=== PATIENT | female | born 1985 | race African-American/Black ===

== ENCOUNTER 2017-01-25 20:19 | Inpatient (IN) | payer SELFPAY ==
[~2017-01-25] VITALS: Ht 162.6 cm; Wt 71.7 kg
[2017-01-25] MEDS ORDERED: LORazepam 1 MG TABLET PO ONE (20:45)
[2017-01-25 20:48] LABS: BASO % 0 % (0-3); EOS % 0 % (0-3); HEMATOCRIT 25.6 % (36.0-47.0); HEMOGLOBIN 7.5 g/dL (12.0-15.5); LYMPH # 0.7 x10^3/uL (1.0-4.8); LYMPH % 6 % (24-48); MEAN CORPUSCULAR HEMOGLOBIN 18 pg (25-35); MEAN CORPUSCULAR HGB CONC 29 g/dL (31-37); MEAN CORPUSCULAR VOLUME 61 fL (79-100); MONO % 5 % (0-9); NEUT % 88 % (31-73); PLATELET COUNT 245 x10^3/uL (140-400); RED CELL DISTRIBUTION WIDTH 18.8 % (11.5-14.5); WHITE BLOOD COUNT 11.4 x10^3/uL (4.0-11.0)
[2017-01-25] MEDS ORDERED: LORazepam 1 MG TABLET ONE (20:48)
[2017-01-25 20:57] LABS: CREATININE 0.8 mg/dL (0.6-1.0); GFR 84.2; POTASSIUM 3.4 mmol/L (3.5-5.1)
[2017-01-25 20:59] LABS: ALBUMIN 3.8 g/dL (3.4-5.0); DIRECT BILIRUBIN 0.1 mg/dL (0.0-0.2); TOTAL BILIRUBIN 0.4 mg/dL (0.2-1.0); TOTAL PROTEIN 8.3 g/dL (6.4-8.2)
[2017-01-25 21:11] LABS: HYPOCHROMIA MARKED; PLT ESTIMATE ADEQUATE (ADEQUATE); POLYCHROMASIA SLIGHT
[2017-01-25 21:12] LABS: ANISOCYTOSIS SLIGHT; MICROCYTOSIS MARKED
[2017-01-25] MEDS ORDERED: HYDROmorphone 2 MG/ML VIAL IV ONE (21:30)
[2017-01-25] MEDS ORDERED: IOHEXOL 300 MG/ML 75 ML VIAL IV ONE (21:45)
[2017-01-25] MEDS ORDERED: CONTRAST GIVEN MC PRN (21:45)
--- NOTE | 2017-01-25 22:15 | RAD ---
PQRS Compliance Statement: One or more of the following individualized dose reduction techniques were utilized for this examination: 1. Automated exposure control 2. Adjustment of the mA and/or kV according to patient size 3. Use of iterative reconstruction technique Chest CT with IV contrast: 01/25/2017 9:27 PM Indication: 31 years old Female. Severe midsternal chest pain. Comparison studies: None. Technique: Multiple contiguous axial images of the chest were obtained from the thoracic inlet through the upper abdomen following the administration of 75 mL nonionic contrast. Two-D coronal and sagittal reconstructions were performed. Maximum intensity projection images are provided. FINDINGS: CHEST WALL AND LOWER NECK: Normal. MEDIASTINUM AND KENDALL: No mediastinal or hilar lymphadenopathy or soft tissue mass. HEART AND PERICARDIUM: Heart is normal in size. There is no pericardial effusion. VESSELS: The thoracic aorta is normal in course and caliber. Contrast bolus is suboptimal for evaluation of aortic dissection. No definite dissection flap is identified. No intramural hematoma. LUNGS: No acute area of infiltrative or consolidative change. LARGE AIRWAYS: Central airways are patent. PLEURAL: No pleural effusion or thickening. No pneumothorax. UPPER ABDOMEN: Unremarkable. BONES: No acute fracture, blastic or osteolytic lesion. IMPRESSION: Suboptimal contrast bolus for evaluation of aortic dissection, however no definite dissection flap is identified. No intramural hematoma. No aneurysm is noted. Electronically signed by: Salma Robbins MD (01/25/2017 10:12 PM) [place] [id number]
--- NOTE | 2017-01-25 22:16 | PHYS DOC ---
Past Medical History Past Medical History: Anemia, Asthma, Other Additional Past Medical Histor: MIGRAINE Past Surgical History: Tubal ligation Alcohol Use: None Drug Use: None Adult General Chief Complaint Chief Complaint: CHEST PAIN HPI HPI 31-year-old female presenting to the emergency department today with chest pain for about 2 hours. The pain is a sharp shooting pain. She has a history of migraines and reports also having intermittent headaches throughout the week. She denies unilateral leg swelling hemoptysis or personal or family history of blood clotting disorders. She denies a history of high blood pressure, diabetes , or high cholesterol. She denies being . She has a history of anemia which in the past has required transfusions. Review of systems is negative for fevers chills cough abdominal pain vision changes difficulty speaking. All other review of systems is negative unless otherwise noted in history of present illness. ED course: 31-year-old female presenting to the emergency department today with chest pain. Patient was hyperventilating initially in the emergency department and very anxious. I offered her an oral medication to help calm her down. Ativan administered which helped her symptomatology. Patient also received hydromorphone for chest pain. EKG obtained which shows sinus tachycardia. ST segments congruent. Not suggestive of ACS. Patient's sinus tachycardia likely related to her writhing around in the examination room hyperventilating and extremely anxious. After patient called down her heart rate came down. Chest x- ray obtained and reviewed by myself.Chest x-ray reviewed by myself shows no obvious infiltrate or pneumothorax present. No obvious acute cardiopulmonary process present. Blood work obtained shows negative troponin. Mild leukocytosis present which is nonspecific. Patient's hemoglobin low which is according the patient's reports a chronic condition. She denies on her stools. CT angiography of the chest obtained. On reexamination the patient is feeling better. HEART score 0. CT angiogram was protocol for aortic dissection because the way the patient describes the pain as a severe pain clinically seemed more to suggest dissection then pulmonary embolism. The patient does not have unilateral leg swelling hemoptysis or any significant risk factors for pulmonary embolism. CT angiogram negative. When I went to tell the patient that she was going to be discharged she reported suddenly not being able to move any of her arms or legs or be able to feel any of her arms or legs. This is not consistent with organic pathology. After nursing staff encouraged her to move, she was able to move. Given the patient's weakness in all extremities, she was admitted to our hospital for further evaluation workup and care. She does have a chronic anemia which can cause weakness but does not cause acute weakness. Patient was able walk in to the emergency department without any difficulty. She was writhing around the bed initially during her initial examination. I called our neurologist Dr. Wilkins, discussed the case. The patient be admitted with neurology consultation. Review of Systems Review of Systems SEE ABOVE. Current Medications Current Medications Current Medications Medications (Trade) Dose Ordered Sig/Rashaun Start Time Stop Time Status Last Admin Dose Admin Hydromorphone HCl (Dilaudid) 0.5 mg 1X ONCE 01/25/17 21:30 01/25/17 21:31 DC 01/25/17 21:31 0.5 MG Info (Do NOT chart on this entry -- for MONITORING) 1 each PRN DAILY PRN 01/25/17 21:45 01/27/17 21:44 Iohexol (Omnipaque 300 Mg/ml) 75 ml 1X ONCE 01/25/17 21:45 01/25/17 21:46 DC 01/25/17 21:46 75 ML Lorazepam (Ativan) 1 mg STK-MED ONCE 01/25/17 20:48 01/25/17 20:49 DC Morphine Sulfate 2 mg PRN Q2HR PRN 01/25/17 23:45 01/26/17 23:44 Ondansetron HCl (Zofran) 4 mg PRN Q8HRS PRN 01/25/17 23:45 01/26/17 23:44 Allergies Allergies Allergies Coded Allergies Type Severity Reaction Last Updated Verified ciprofloxacin Allergy Intermediate 01/25/17 Yes sulfamethoxazole Allergy Intermediate 01/25/17 Yes trimethoprim Allergy Intermediate 01/25/17 Yes Physical Exam Physical Exam SEE ABOVE Constitutional: Well developed, well nourished, anxious appearing, nontoxic. HENT: Normocephalic, atraumatic, bilateral external ears normal, oropharynx moist, no oral exudates, nose normal. [] Eyes: PERRLA, EOMI, conjunctiva normal, no discharge. [] Neck: Normal range of motion, no tenderness, supple, no stridor. [] Cardiovascular:Heart rate regular rhythm, no murmur [] Lungs & Thorax: Bilateral breath sounds clear to auscultation [] Abdomen: Bowel sounds normal, soft, no tenderness, no masses, no pulsatile masses. [] Skin: Warm, dry, no erythema, no rash. [] Back: No tenderness, no CVA tenderness. [] Extremities: No tenderness, no cyanosis, no clubbing, ROM intact, no edema. [] Neurologic: Alert and oriented X 3, normal motor function, normal sensory function, no focal deficits noted. [] Psychologic: Affect normal, judgement normal, mood normal. [] Current Patient Data Vital Signs Vital Signs Date Time Temp Pulse Resp B/P (MAP) Pulse Ox O2 Delivery O2 Flow Rate FiO2 01/25/17 21:31 48 01/25/17 20:30 98.7 118 144/80 (101) 100 Room Air 98.7 Lab Values Laboratory Tests Test 01/25/17 20:35 01/25/17 21:07 White Blood Count 11.4 x10^3/uL (4.0-11.0) H Red Blood Count 4.20 x10^6/uL (3.50-5.40) Hemoglobin 7.5 g/dL (12.0-15.5) L Hematocrit 25.6 % (36.0-47.0) L Mean Corpuscular Volume 61 fL (79-100) L Mean Corpuscular Hemoglobin 18 pg (25-35) L Mean Corpuscular Hemoglobin Concent 29 g/dL (31-37) L Red Cell Distribution Width 18.8 % (11.5-14.5) H Platelet Count 245 x10^3/uL (140-400) Neutrophils (%) (Auto) 88 % (31-73) H Lymphocytes (%) (Auto) 6 % (24-48) L Monocytes (%) (Auto) 5 % (0-9) Eosinophils (%) (Auto) 0 % (0-3) Basophils (%) (Auto) 0 % (0-3) Neutrophils # (Auto) 10.1 x10^3uL (1.8-7.7) H Lymphocytes # (Auto) 0.7 x10^3/uL (1.0-4.8) L Monocytes # (Auto) 0.6 x10^3/uL (0.0-1.1) Eosinophils # (Auto) 0.0 x10^3/uL (0.0-0.7) Basophils # (Auto) 0.0 x10^3/uL (0.0-0.2) Platelet Estimate Adequate (ADEQUATE) Polychromasia Slight Hypochromasia Marked Anisocytosis Slight Microcytosis Marked Sodium Level 138 mmol/L (136-145) Potassium Level 3.4 mmol/L (3.5-5.1) L Chloride Level 101 mmol/L (98-107) Carbon Dioxide Level 21 mmol/L (21-32) Anion Gap 16 (6-14) H Blood Urea Nitrogen 9 mg/dL (7-20) Creatinine 0.8 mg/dL (0.6-1.0) Estimated GFR (Cockcroft-Gault) 84.2 Glucose Level 136 mg/dL (70-99) H Calcium Level 9.0 mg/dL (8.5-10.1) Total Bilirubin 0.4 mg/dL (0.2-1.0) Direct Bilirubin 0.1 mg/dL (0.0-0.2) Aspartate Amino Transferase (AST) 19 U/L (15-37) Alanine Aminotransferase (ALT) 21 U/L (14-59) Alkaline Phosphatase 60 U/L (46-116) Troponin I Quantitative < 0.017 ng/mL (0.000-0.055) GY-Mdu-L-Type Natriuretic Peptide 71 pg/mL (0-124) Total Protein 8.3 g/dL (6.4-8.2) H Albumin 3.8 g/dL (3.4-5.0) Lipase 166 U/L (73-393) POC Urine HCG, Qualitative Hcg negative (Negative) Laboratory Tests 01/25/17 20:35 Laboratory Tests 01/25/17 20:35 EKG EKG [] Radiology/Procedures Radiology/Procedures [] Course & Med Decision Making Course & Med Decision Making Pertinent Labs and Imaging studies reviewed. (See chart for details) [] Dragon Disclaimer Dragon Disclaimer This electronic medical record was generated, in whole or in part, using a voice recognition dictation system. Departure Departure Impression: Primary Impression: Chest pain Additional Impression: Weakness Disposition: 09 ADMITTED INPATIENT Admitting Physician: Enrike Cedeno Condition: STABLE Referrals: NO PCP (PCP) Patient Instructions: Chest Pain (Nonspecific) Additional Instructions: Thank you for allowing us to participate in your care today. Followup with your primary care physician in 3 days if your symptoms do not improve. Call your Primary Doctor tomorrow and inform them of your visit today. If you do not have a primary care provider you can ask for a list of our primary care providers. Return to the emergency department you have any new or concerning findings. This should be evaluated by the primary care physician and any necessary consulting services for continued management within a few days after discharge. Return to emergency room if you have any new or concerning symptoms including but not limited to fever, chills, nausea, vomiting, intractable pain, any new rashes, chest pain, shortness of air, uncontrolled bleeding, difficulty breathing, and/or vision loss. Problem Qualifiers JACK BOWEN MD Jan 25, 2017 22:16
[2017-01-25] MEDS ORDERED: ONDANSETRON PF 4 MG/2 ML VIAL. IV PRN (23:45)
[2017-01-26] VITALS (7 sets, daily range): BP systolic 99–128; BP diastolic 46–69
[2017-01-26] MEDS ORDERED: FERR-36 PO (01:56)
[2017-01-26] MEDS ORDERED: PROAIR HFA8.5 GM INH (01:56)
[2017-01-26] MEDS: MORPHINE SULFATE 2 MG/ML DISP.SYRIN. IV PRN ×2 (02:23→07:52)
[2017-01-26] MEDS ORDERED: diphenhydrAMINE 50 MG/ML VIAL IVP PRN (02:45)
[2017-01-26] MEDS ORDERED: HYDROmorphone 2 MG/ML VIAL IV PRN (02:45)
[2017-01-26 06:43] LABS: BASO % 0 % (0-3); EOS % 0 % (0-3); HEMATOCRIT 23.5 % (36.0-47.0); LYMPH # 0.9 x10^3/uL (1.0-4.8); LYMPH % 8 % (24-48); MEAN CORPUSCULAR HEMOGLOBIN 18 pg (25-35); MEAN CORPUSCULAR HGB CONC 30 g/dL (31-37); MEAN CORPUSCULAR VOLUME 60 fL (79-100); MONO % 11 % (0-9); NEUT % 80 % (31-73); PLATELET COUNT 232 x10^3/uL (140-400); RED BLOOD COUNT 3.92 x10^6/uL (3.50-5.40); RED CELL DISTRIBUTION WIDTH 18.8 % (11.5-14.5); WHITE BLOOD COUNT 11.2 x10^3/uL (4.0-11.0)
[2017-01-26 06:44] LABS: CALCIUM 8.4 mg/dL (8.5-10.1); CREATININE 0.8 mg/dL (0.6-1.0); GFR 101.9
[2017-01-26] MEDS ORDERED: IV NORMAL SALINE 1000ML BAG 1,000 ML IV ONE (09:45)
[2017-01-26] MEDS: POTASSIUM CHLORIDE 10MEQ 100 ML IV SCH ×4 (10:16→13:00)
--- NOTE | 2017-01-26 10:44 | RAD ---
Portable chest, 01/25/2017: History: Chest pain The heart size and pulmonary vascularity are normal. No pulmonary infiltrates are seen. There is no evidence of pleural fluid. There is a mild left convexity thoracic scoliosis. IMPRESSION: No acute cardiopulmonary abnormality is detected.
--- NOTE | 2017-01-26 12:23 | EKG ---
[facility] [address] [place] [address] Test Date: 2017-01-25 Test Time: 20:29:43 Pat Name: MYA CAMARILLO Department: Room: [facility] Gender: F Complaints Coordinator: : 1985 Requested By: JACK BOWEN Order Number: [id number] Reading MD: Michael Mcnair Measurements Intervals [place] Rate: 135 P: 35 [place]: 98 QRS: 42 QRSD: 90 T: 23 QT: 338 QTc: 512 Interpretive Statements SINUS TACHYCARDIA NONSPECIFIC ST-T WAVE CHANGES. RI6.01 Unconfirmed report No previous ECG available for comparison Electronically Signed On 02-13-2017 17:11:01 CDT by Michael Mcnair
--- NOTE | 2017-01-26 13:13 | PDOC2 ---
NEUROLOGY CONSULT Date of Admission Date of Admission Full Report Dictated DATE: 01/26/17 TIME: 13:11 Current Medications Current Medications Current Medications Lorazepam (Ativan) 1 mg 1X ONCE PO Last administered on 01/25/17 20:50; Start 01/25/17 at 20:45; Stop 01/25/17 at 20:48; Status DC Lorazepam (Ativan) 1 mg STK-MED ONCE .ROUTE ; Start 01/25/17 at 20:48; Stop 01/25/17 at 20:49; Status DC Hydromorphone HCl (Dilaudid) 0.5 mg 1X ONCE IV Last administered on 01/25/17 21:31; Start 01/25/17 at 21:30; Stop 01/25/17 at 21:31; Status DC Iohexol (Omnipaque 300 Mg/ml) 75 ml 1X ONCE IV Last administered on 01/25/17 21:46; Start 01/25/17 at 21:45; Stop 01/25/17 at 21:46; Status DC Info (Do NOT chart on this entry -- for MONITORING) 1 each PRN DAILY PRN MC SEE COMMENTS; Start 01/25/17 at 21:45; Stop 01/27/17 at 21:44 Ondansetron HCl (Zofran) 4 mg PRN Q8HRS PRN IV NAUSEA/VOMITING Last administered on 01/26/17 02:23; Start 01/25/17 at 23:45; Stop 01/26/17 at 12:46 ; Status DC Morphine Sulfate 2 mg PRN Q2HR PRN IV PAIN Last administered on 01/26/17 07:52 ; Start 01/25/17 at 23:45; Stop 01/26/17 at 09:38; Status DC Diphenhydramine HCl (Benadryl) 25 mg PRN Q6HRS PRN IVP ITCHING Last administered on 01/26/17 03:00; Start 01/26/17 at 02:45; Stop 01/26/17 at 09:38 ; Status DC Hydromorphone HCl (Dilaudid) 1 mg PRN Q4HRS PRN IV PAIN Last administered on 05:07; Start 01/26/17 at 02:45; Stop 01/26/17 at 09:38; Status DC Sodium Chloride 1,000 ml @ 100 mls/hr 1X ONCE IV Last administered on 10:15; Start 01/26/17 at 09:45; Stop 01/26/17 at 19:44 Potassium Chloride 100 ml @ 100 mls/hr Q1H IV Last administered on 01/26/17 12:16; Start 01/26/17 at 10:00; Stop 01/26/17 at 13:59 Ibuprofen (Motrin) 400 mg PRN Q6HRS PRN PO INFLAMMATION; Start 01/26/17 at 09: 45 Diphenhydramine HCl (Benadryl) 25 mg PRN Q6HRS PRN PO ITCHING; Start 01/26/17 at 09:45 Citalopram Hydrobromide (CeleXA) 20 mg DAILY PO ; Start 01/26/17 at 13:00 Active Scripts Active Reported Iron (Ferrous Sulfate) 325 Mg Tablet 325 Mg PO QID Proair Hfa Inhaler (Albuterol Sulfate) 8.5 Gm Hfa.aer.ad 1 Puff INH PRN Q6HRS PRN Allergies Allergies: Coded Allergies: ciprofloxacin (Verified Allergy, Intermediate, 01/25/17) sulfamethoxazole (Verified Allergy, Intermediate, 01/25/17) trimethoprim (Verified Allergy, Intermediate, 01/25/17) Vitals VITALS Vital Signs Date Time Temp Pulse Resp B/P (MAP) Pulse Ox O2 Delivery O2 Flow Rate FiO2 01/26/17 11:35 98.4 92 20 100/50 (67) 100 98.4 01/26/17 08:00 Room Air Labs Labs Laboratory Tests Test 01/25/17 20:35 01/25/17 21:07 01/26/17 06:00 White Blood Count 11.4 x10^3/uL (4.0-11.0) 11.2 x10^3/uL (4.0-11.0) Red Blood Count 4.20 x10^6/uL (3.50-5.40) 3.92 x10^6/uL (3.50-5.40) Hemoglobin 7.5 g/dL (12.0-15.5) 7.0 g/dL (12.0-15.5) Hematocrit 25.6 % (36.0-47.0) 23.5 % (36.0-47.0) Mean Corpuscular Volume 61 fL (79-100) 60 fL (79-100) Mean Corpuscular Hemoglobin 18 pg (25-35) 18 pg (25-35) Mean Corpuscular Hemoglobin Concent 29 g/dL (31-37) 30 g/dL (31-37) Red Cell Distribution Width 18.8 % (11.5-14.5) 18.8 % (11.5-14.5) Platelet Count 245 x10^3/uL (140-400) 232 x10^3/uL (140-400) Neutrophils (%) (Auto) 88 % (31-73) 80 % (31-73) Lymphocytes (%) (Auto) 6 % (24-48) 8 % (24-48) Monocytes (%) (Auto) 5 % (0-9) 11 % (0-9) Eosinophils (%) (Auto) 0 % (0-3) 0 % (0-3) Basophils (%) (Auto) 0 % (0-3) 0 % (0-3) Neutrophils # (Auto) 10.1 x10^3uL (1.8-7.7) 9.0 x10^3uL (1.8-7.7) Lymphocytes # (Auto) 0.7 x10^3/uL (1.0-4.8) 0.9 x10^3/uL (1.0-4.8) Monocytes # (Auto) 0.6 x10^3/uL (0.0-1.1) 1.2 x10^3/uL (0.0-1.1) Eosinophils # (Auto) 0.0 x10^3/uL (0.0-0.7) 0.0 x10^3/uL (0.0-0.7) Basophils # (Auto) 0.0 x10^3/uL (0.0-0.2) 0.0 x10^3/uL (0.0-0.2) Platelet Estimate Adequate (ADEQUATE) Polychromasia Slight Hypochromasia Marked Anisocytosis Slight Microcytosis Marked Sodium Level 138 mmol/L (136-145) 137 mmol/L (136-145) Potassium Level 3.4 mmol/L (3.5-5.1) 3.0 mmol/L (3.5-5.1) Chloride Level 101 mmol/L (98-107) 103 mmol/L (98-107) Carbon Dioxide Level 21 mmol/L (21-32) 20 mmol/L (21-32) Anion Gap 16 (6-14) 14 (6-14) Blood Urea Nitrogen 9 mg/dL (7-20) 8 mg/dL (7-20) Creatinine 0.8 mg/dL (0.6-1.0) 0.8 mg/dL (0.6-1.0) Estimated GFR (Cockcroft-Gault) 84.2 101.9 Glucose Level 136 mg/dL (70-99) 101 mg/dL (70-99) Calcium Level 9.0 mg/dL (8.5-10.1) 8.4 mg/dL (8.5-10.1) Total Bilirubin 0.4 mg/dL (0.2-1.0) Direct Bilirubin 0.1 mg/dL (0.0-0.2) Aspartate Amino Transf (AST/SGOT) 19 U/L (15-37) Alanine Aminotransferase (ALT/SGPT) 21 U/L (14-59) Alkaline Phosphatase 60 U/L (46-116) Troponin I Quantitative < 0.017 ng/mL (0.000-0.055) XU-Tsl-C-Type Natriuretic Peptide 71 pg/mL (0-124) Total Protein 8.3 g/dL (6.4-8.2) Albumin 3.8 g/dL (3.4-5.0) Lipase 166 U/L (73-393) Bedside Urine HCG, Qualitative Hcg negative (Negative) Laboratory Tests Test 01/25/17 20:35 01/25/17 21:07 01/26/17 06:00 White Blood Count 11.4 x10^3/uL (4.0-11.0) 11.2 x10^3/uL (4.0-11.0) Red Blood Count 4.20 x10^6/uL (3.50-5.40) 3.92 x10^6/uL (3.50-5.40) Hemoglobin 7.5 g/dL (12.0-15.5) 7.0 g/dL (12.0-15.5) Hematocrit 25.6 % (36.0-47.0) 23.5 % (36.0-47.0) Mean Corpuscular Volume 61 fL (79-100) 60 fL (79-100) Mean Corpuscular Hemoglobin 18 pg (25-35) 18 pg (25-35) Mean Corpuscular Hemoglobin Concent 29 g/dL (31-37) 30 g/dL (31-37) Red Cell Distribution Width 18.8 % (11.5-14.5) 18.8 % (11.5-14.5) Platelet Count 245 x10^3/uL (140-400) 232 x10^3/uL (140-400) Neutrophils (%) (Auto) 88 % (31-73) 80 % (31-73) Lymphocytes (%) (Auto) 6 % (24-48) 8 % (24-48) Monocytes (%) (Auto) 5 % (0-9) 11 % (0-9) Eosinophils (%) (Auto) 0 % (0-3) 0 % (0-3) Basophils (%) (Auto) 0 % (0-3) 0 % (0-3) Neutrophils # (Auto) 10.1 x10^3uL (1.8-7.7) 9.0 x10^3uL (1.8-7.7) Lymphocytes # (Auto) 0.7 x10^3/uL (1.0-4.8) 0.9 x10^3/uL (1.0-4.8) Monocytes # (Auto) 0.6 x10^3/uL (0.0-1.1) 1.2 x10^3/uL (0.0-1.1) Eosinophils # (Auto) 0.0 x10^3/uL (0.0-0.7) 0.0 x10^3/uL (0.0-0.7) Basophils # (Auto) 0.0 x10^3/uL (0.0-0.2) 0.0 x10^3/uL (0.0-0.2) Platelet Estimate Adequate (ADEQUATE) Polychromasia Slight Hypochromasia Marked Anisocytosis Slight Microcytosis Marked Sodium Level 138 mmol/L (136-145) 137 mmol/L (136-145) Potassium Level 3.4 mmol/L (3.5-5.1) 3.0 mmol/L (3.5-5.1) Chloride Level 101 mmol/L (98-107) 103 mmol/L (98-107) Carbon Dioxide Level 21 mmol/L (21-32) 20 mmol/L (21-32) Anion Gap 16 (6-14) 14 (6-14) Blood Urea Nitrogen 9 mg/dL (7-20) 8 mg/dL (7-20) Creatinine 0.8 mg/dL (0.6-1.0) 0.8 mg/dL (0.6-1.0) Estimated GFR (Cockcroft-Gault) 84.2 101.9 Glucose Level 136 mg/dL (70-99) 101 mg/dL (70-99) Calcium Level 9.0 mg/dL (8.5-10.1) 8.4 mg/dL (8.5-10.1) Total Bilirubin 0.4 mg/dL (0.2-1.0) Direct Bilirubin 0.1 mg/dL (0.0-0.2) Aspartate Amino Transf (AST/SGOT) 19 U/L (15-37) Alanine Aminotransferase (ALT/SGPT) 21 U/L (14-59) Alkaline Phosphatase 60 U/L (46-116) Troponin I Quantitative < 0.017 ng/mL (0.000-0.055) FX-Rol-C-Type Natriuretic Peptide 71 pg/mL (0-124) Total Protein 8.3 g/dL (6.4-8.2) Albumin 3.8 g/dL (3.4-5.0) Lipase 166 U/L (73-393) Bedside Urine HCG, Qualitative Hcg negative (Negative) Assessment/Plan Assessment/Plan Patient is a 31-year-old woman who recently relocated from [place] to live in this region to be with her mother. He has been under a great deal of stress. She began to have chest pain and generalized weakness while at her mother's restaurant. In the emergency room the chest pain was felt not to be cardiac. She could not be dismissed she would not move any muscles. She was found to have anemia with initial hemoglobin at 7.5 and a repeat at 7 this morning. She is known to have iron deficiency and previously did require a transfusion about 5 years ago. She is also previously had an episode of paralysis also associated with anemia. Her potassium is low but I do not feel this represents hypokalemic periodic paralysis as she does have normal reflex. I feel this is likely a conversion reaction given her neurologic examination of normal tone and normal reflex. She has normal superficial abdominal reflexes as well which would suggest sensation is actually working. This is not necessarily malingering and is likely conversion meaning she is not doing it on purpose. She may require a transfusion which might help her feel better. I will order a thyroid test to make sure that is not contributing to her flat affect. She may be helped by physical and occupational therapy. She may be dismissed when she is moving adequately. HELEN VILLAREAL MD Jan 26, 2017 13:13
[2017-01-26] MEDS: CITALOPRAM 20 MG TABLET. PO SCH (13:26)
[2017-01-26 14:01] LABS: FREE T4 0.95 ng/dL (0.76-1.46)
--- NOTE | 2017-01-26 16:47 | CONS ---
DATE OF CONSULTATION: 01/26/2017 DATE OF SERVICE: 01/26/2017 REFERRING PHYSICIAN: Dr. Jc Moreau. REASON FOR CONSULTATION: Chest pain and total body paralysis. HISTORY OF PRESENT ILLNESS: The patient is a pleasant 31-year-old woman who recently relocated from [place] to this region to live with her mother. Her mother reports that she has always worked ever since she was young and she has been under stress because she has to find a job. 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 She has strains because she has 5 children, but not all five live with her. She has different fathers for some of these children and some of the children live with their fathers out of state. She presented to the Emergency Room because she was developing a sharp chest pain. She also was developing numbness and weakness. By the time they decided to go from the restaurant to the Emergency Room, she required help to get to the car. In the Emergency Room, the chest pain was investigated and was not found to be cardiac in etiology. She then stated she could not be dismissed because she could not move. She has no difficulty with breathing or talking and moving her eyes, but she could not move her arms or legs. This has improved slightly in that she can move her fingers a tiny bit. She has complete paralysis throughout from her neck on down. There has been no trauma to the head or neck. She has a severe headache, which she usually does experience on a daily basis. She has never been on a headache preventative. She has used [id number] analgesics for the headache. PAST MEDICAL HISTORY: 1. She reports that she had a similar spell 5 years ago in [place] when she was anemic. She was totally paralyzed and she was hospitalized for 3-4 days and made improvement, but it took 3 weeks to gain back all of her strength. 2. Asthma. 3. Migraine headache with chronic daily headaches. 4. Bilateral tubal ligation and tubal . ALLERGIES: CIPROFLOXACIN, SULFA AND TRIMETHOPRIM. FAMILY HISTORY: Several family members have iron deficient anemia. SOCIAL HISTORY: She is single. She has 5 children, but only two presently live with her. The 5 children come from at least 3 different fathers. She does not smoke tobacco or drink excessive alcohol. She has relocated from [place] to live with her mother. REVIEW OF SYSTEMS: She had a severe holocranial headache. There has been no change of vision or hearing. She has been able to eat and swallow. She has had no shortness of breath. She does have sharp chest pain. There has been lower abdominal pain. She has not had fever or rash. Does not have gastrointestinal or genitourinary concern. Does not have a psychiatric concern. Does not complain of easy bruising, bleeding or swelling. She does have a history of anemia and required transfusions previously. MEDICATIONS PRIOR TO ADMISSION: Albuterol metered dose inhaler as needed and iron sulfate, although I am not certain she was actually taking it. PHYSICAL EXAMINATION: VITAL SIGNS: The blood pressure was 100/50, pulse 92, respirations 20, temperature 98.4 degrees Fahrenheit. Oximetry was 100% on room air. Her weight was 158 pounds, height 64 inches and a calculated body mass index of 27.1. GENERAL: She was alert, awake and cooperative. Overall, her affect was quite flat. Her speech was fluent and clear. She had a good fund of recent and remote knowledge. Attention and concentration was intact. She appeared well groomed and well nourished. She was fully oriented. NEUROLOGIC: Examination of the cranial nerves revealed visual hodge were full to confrontation. Extraocular movements were intact. The eyes were conjugate. Pursuit movements were smooth and saccadic eye movements were without dysmetria. Pupils were 3 mm and reacted. Funduscopic exam did not reveal papilledema, exudate or hemorrhage. 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 Facial sensation was intact bilaterally. The muscles of mastication and facial expression were powerful symmetrically. Hearing was intact to finger rub. The palate arches symmetrically and the tongue was midline with full range of motion. Sternocleidomastoid and trapezius were powerful. Muscle bulk was symmetric throughout. Tone was normal, was not spastic or rigid. She would twitch her fingers, but had no movement of any other parts of her arms or legs. Reflexes were intact 2/4 at the bicep, tricep, brachioradialis, knee, and ankle. The toes were downgoing bilaterally. Superficial reflexes were present in the abdomen as well. Coordination testing was not possible due to the global weakness. Sensory examination was not intact to any modality below the neck. Gait was not testable. Auscultation of the carotid arteries did not reveal a bruit. Heart rhythm was regular without a murmur. Peripheral pulses were symmetric in the wrists and feet. There was no edema or cyanosis. The neck was quite supple without any rigidity. Range of motion was normal. LABORATORY DATA: CBC revealed an elevated white count of 11.2. Hemoglobin was 7 and hematocrit 23.5. Platelet count was normal. Electrolytes revealed sodium to be normal at 137. Potassium on admission was 3.4, but this morning was down to 3. She is receiving potassium replacement. CO2 was low at 20 and glucose 101. Calcium was low at 8.4. Troponin was not elevated. BNP was not elevated. Lipase was not elevated. Urinalysis revealed a negative hCG. RADIOLOGIC IMAGING: She underwent a chest x-ray, which was negative. She also had a CTA of the thorax which did not reveal aneurysm. IMPRESSION: The patient is a pleasant 31-year-old woman who developed chest pain and then total body numbness and weakness. As I look into this, if she were to have a hypokalemic periodic paralysis, she would also have an absent reflex. The muscle would be in a constant depolarized state and there could be no reflex. So, that her reflexes are normal, suggests this is not a possible entity for her. Although she is anemic, it is unlikely the anemia correlates. The anemia could certainly make her feel perhaps a little weak or short of breath, but not generally paralyzed. A spinal cord injury could give total paralysis and numbness, but I would see some pathologic changes and there is absolutely no problem moving her head or neck. I find it extremely unlikely there is any type of spinal cord injury. I feel this is a conversion reaction. She is certainly under a great deal of stress. RECOMMENDATIONS: I had a long discussion with various differentials. The potassium is being replaced, but I do not think this will make any difference. She may require transfusion, which might help her feel a little more alert, but I do not think this will make any difference with respect to the strength or coordination or sensation. I do not feel it is an organic process. Typically, even in situations where it is a conversion reaction, therapies can be very helpful in improving function. Hopefully, she will start to improve in the next few days. I will initiate citalopram 20 mg to help as both a headache preventative and help with overall anxiety and mood. We discussed potential adverse effects as well as indications of this medicine. Her mother was present at bedside during the entire interview and evaluation. I appreciate being involved in her care. HELEN VILLAREAL MD DR: CHRIS/laurie JOB#: [id number] / [id number] ana Serrano, ____ PILI BUTLER MD, CHUNMEI MD
[2017-01-26] MEDS: diphenhydrAMINE HCL 25 MG CAPSULE PO PRN (20:42)
[2017-01-26] MEDS: LORazepam 0.5 MG TABLET PO PRN (20:42)
[2017-01-26] MEDS: IBUPROFEN 400 MG TABLET. PO PRN (20:42)
[2017-01-27] VITALS (10 sets, daily range): BP systolic 100–125; BP diastolic 53–83
[2017-01-27] MEDS: IBUPROFEN 400 MG TABLET. PO PRN ×3 (05:58→22:44)
[2017-01-27] MEDS: ASA/APAP/CAFFEINE 250/250/65MG TABLET. PO PRN ×2 (06:46→18:07)
[2017-01-27] MEDS: CITALOPRAM 20 MG TABLET. PO SCH (07:59)
[2017-01-27] MEDS: LORazepam 0.5 MG TABLET PO PRN (09:33)
[2017-01-27 11:14] LABS: BARBITURATES POS (NEG); BENZODIAZEPINES NEG (NEG); CANNABINOIDS POS (NEG); COCAINE NEG (NEG); METHADONE NEG (NEG); OPIATES POS (NEG); PHENCYCLIDINE NEG (NEG)
--- NOTE | 2017-01-27 12:44 | PDOC ---
PROGRESS NOTES Chief Complaint Chief Complaint Chest pain paraplegia ASSESSMENT AND PLAN: 1. 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 started on celexa and ativan for now. encouraged to work with OT/PT 2. Anemia: severe microcytosis. has script for iron qid with hx transfusion. obtain iron studies. suspect 2/2 menorrhagia. transfuse PRBC x1 today 3. Hypokalemia: replete orally History of Present Illness History of Present Illness worried that she may have MS. d/w her at length etiology of her sx Vitals Vitals Vital Signs Date Time Temp Pulse Resp B/P (MAP) Pulse Ox O2 Delivery O2 Flow Rate FiO2 01/27/17 11:00 97.7 94 18 115/72 (86) 95 Nasal Cannula 2.0 97.7 Physical Exam General: Alert, Oriented X3, No acute distress Heart: Regular rate Lungs: Clear Abdomen: Normal bowel sounds, No tenderness Extremities: No clubbing, No edema Skin: No rashes Labs LABS Laboratory Tests Test 01/26/17 13:10 01/27/17 10:24 Thyroid Stimulating Hormone (TSH) 0.851 uIU/mL (0.358-3.74) Free Thyroxine 0.95 ng/dL (0.76-1.46) Urine Opiates Screen Pos (NEG) Urine Methadone Screen Neg (NEG) Urine Barbiturates Pos (NEG) Urine Phencyclidine Screen Neg (NEG) Urine Amphetamine/Methamphetamine Neg (NEG) Urine Benzodiazepines Screen Neg (NEG) Urine Cocaine Screen Neg (NEG) Urine Cannabinoids Screen Pos (NEG) Urine Ethyl Alcohol Neg (NEG) DANTE BLACKWOOD MD Jan 27, 2017 12:44
[2017-01-27] MEDS: LORazepam 0.5 MG TABLET PO SCH ×2 (12:57→18:07)
[2017-01-27] MEDS ORDERED: ONDANSETRON ODT 4 MG TAB.RAPDIS. PO PRN (15:00)
[2017-01-27] MEDS ORDERED: POTASSIUM CHLORIDE 20 MEQ TABLET.ER. PO ONE (15:00)
[2017-01-27] MEDS: ONDANSETRON ODT 4 MG TAB.RAPDIS. PO PRN (15:03)
[2017-01-27 15:23] LABS: % SAT IRON 2 % (15-34); IRON,SERUM 6 ug/dL (50-170)
--- NOTE | 2017-01-27 15:35 | PDOC ---
PROGRESS NOTES Assessment Assessment IMPRESSION: Paralysis, LE. Generalized weakness. Anemia. Chest pain. Mild hypokalemia. Panic attack. Cannabinoids positive. Opiate positive. Conversion disorder? No urinary or bowel dysfunction noted. RECOMMENDATIONS/PLAN: L-spine MRI w/wo contrast. Patient declined LP for CSF exam. Lab: see orders. Consulted Hematology for anemia. OT/PT. PAST MEDICAL HISTORY: 1. She reports that she had a similar spell 5 years ago in [place] when she was anemic. She was totally paralyzed and she was hospitalized for 3-4 days and made improvement, but it took 3 weeks to gain back all of her strength. 2. Asthma. 3. Migraine headache with chronic daily headaches. PAST SURGICAL HISTORY: Bilateral tubal ligation and tubal . ALLERGIES: CIPROFLOXACIN, SULFA AND TRIMETHOPRIM. FAMILY HISTORY: Several family members have iron deficient anemia. SOCIAL HISTORY: She is single. She has 5 children, but only two presently live with her. The 5 children come from at least 3 different fathers. She does not smoke tobacco or drink excessive alcohol. She has relocated from [place] to live with her mother. MEDICATIONS: Refer to [facility] REVIEW OF SYSTEMS: Constitutional: No malnutrition, weight loss, cachexia. Head: No traumatic brain or head injury. Skin: No edema, or rash. Ear: No infection. Eyes: No vision loss, or diplopia. Nose: No bleeding or purulent discharges. Hearing: No hearing decrease. Neck: No injury. Breast: No history of cancer, masses, or discharges. Cardiac: No NM, arrhythmia Pulmonary: No pneumonia. GI: No GI Ulcer, GI bleeding Urinary/genital: UTI. Endocrine: No cousin face, craniofacial dysmorphism, polydactyly. Skeletomuscular: No muscular atrophy, deformity. Neurological: see HP. Psychiatric: drug use/abuse. Otherwise, not [id number] review of systems. PHYSICAL EXAMINATION: General appearance in no acute distress. HEENT: Normocephalic and nontraumatic. Eyes, nose, ears, and throat are unremarkable. Neck is supple. No lymphadenopathy. No bruits are heard over the carotid artery. No Crepitus. Cardiovascular: S1, S2, regular rate and rhythm. Pulmonary: Clear to auscultation bilaterally. Abdomen: Bowel sounds are positive. Abdomen is soft, nontender, and nondistended. Extremities: No rash, lesions, or edema. No restriction of range of motion NEUROLOGICAL EXAMINATION: Alert. Oriented to time, place and person. PERRL. EOMI. CN: no focal findings. Muscle tone: within normal. Muscle strength: 5 UE, but not move LE. DTR: 2+ all over. Plantar reflex: Flexor response bilaterally Gait: stating not able to walk. Sensory exam: She stated decreased to light touch, pain, and vibration sense in LE. No cerebellar signs elicited. F-T-N test fine Objective Objective Vital Signs Date Time Temp Pulse Resp B/P (MAP) Pulse Ox O2 Delivery O2 Flow Rate FiO2 01/27/17 15:19 102.9 111 18 119/67 (84) 100 Room Air 102.9 01/27/17 11:00 2.0 Intake and Output 01/28/17 07:00 Output Total 100 ml Balance -100 ml Output Urine Total 100 ml Vitals Signs Vitals VS - Last 72 Hours, by Label Date Time Temp Pulse Resp B/P (MAP) Pulse Ox O2 Delivery O2 Flow Rate FiO2 01/27/17 15:19 102.9 111 18 119/67 (84) 100 Room Air 102.9 01/27/17 11:00 97.7 94 18 115/72 (86) 95 Nasal Cannula 2.0 97.7 01/27/17 08:00 Room Air 2.0 01/27/17 07:00 100.0 105 18 108/67 (81) 98 Nasal Cannula 2.0 100.0 01/27/17 03:00 98.3 96 17 100/60 (73) 99 Room Air 98.3 01/26/17 23:00 98.8 97 18 104/58 (73) 95 Room Air 98.8 01/26/17 20:10 Room Air 01/26/17 19:00 101.7 116 17 124/69 (87) 99 Room Air 101.7 01/26/17 14:57 141 128/68 (88) 100 Nasal Cannula 2.0 01/26/17 14:49 98.2 90 18 99/52 (68) 100 98.2 01/26/17 11:35 98.4 92 20 100/50 (67) 100 98.4 01/26/17 08:00 Room Air 01/26/17 07:52 16 98 Room Air Laboratory Laboratory Laboratory Tests Test 01/27/17 10:24 01/27/17 12:45 Urine Opiates Screen Pos (NEG) Urine Methadone Screen Neg (NEG) Urine Barbiturates Pos (NEG) Urine Phencyclidine Screen Neg (NEG) Urine Amphetamine/Methamphetamine Neg (NEG) Urine Benzodiazepines Screen Neg (NEG) Urine Cocaine Screen Neg (NEG) Urine Cannabinoids Screen Pos (NEG) Urine Ethyl Alcohol Neg (NEG) Creatine Kinase 53 U/L (26-192) Medication Medications Current Medications Acetaminophen/ Aspirin/Caffeine (Excedrin Migraine) 1 tab PRN Q6HRS PRN PO MIGRAINE HEADACHE Last administered on 01/27/17 06:46; Start 01/27/17 at 06:30 Lorazepam (Ativan) 0.5 mg PRN Q6HRS PRN IV ANXIETY / AGITATION; Start 01/26/17 at 16:30 Lorazepam (Ativan) 0.5 mg PRN Q6HRS PRN PO ANXIETY / AGITATION Last administered on 01/27/17 09:33; Start 01/26/17 at 16:30; Stop 01/27/17 at 12:46 ; Status DC Lorazepam (Ativan) 0.5 mg Q6HRS PO Last administered on 01/27/17 12:57; Start 01/27/17 at 13:00 Ondansetron HCl (Zofran Odt) 4 mg PRN Q6HRS PRN PO NAUSEA/VOMITING Last administered on 01/27/17 15:03; Start 01/27/17 at 15:00 Ondansetron HCl (Zofran Odt) 8 mg PRN Q6HRS PRN PO NAUSEA/VOMITING; Start 01/27 at 15:00 Potassium Chloride (Klor-Con) 40 meq 1X ONCE PO ; Start 01/27/17 at 15:00; Stop 01/27/17 at 15:01; Status DC Comment Review of Relevant I have reviewed the following items ralph (where applicable) has been applied. PILI BUTLER MD Jan 27, 2017 15:35
--- NOTE | 2017-01-27 16:33 | HP ---
ADMIT DATE: 01/27/2017 CHIEF COMPLAINT: Chest pain, leg weakness. HISTORY OF PRESENT ILLNESS: This is a 31-year-old woman without significant past medical history who presented to the Emergency Room with chest pain lasting about 2 hours. She described pain as shooting, sharp and taken her breath away. Associated with headaches, which actually have been going on for almost the entire week. She relates that she also had leg weakness and sometimes her extremities just do not work. She recently moved back from [place] about 2 weeks ago to be closer to her family. She denies any fevers, chills, abdominal pain, vision changes or other neurological symptoms. In the Emergency Room, a CTA of the chest was obtained, which was negative. When she was informed of negative findings on CTA and impending discharge, she complained of suddenly losing the facilities of her legs and was therefore admitted for further workup. PAST MEDICAL HISTORY: Anemia. SOCIAL HISTORY: Denies any toxic habits. FAMILY HISTORY: Negative for neurological disorders. ALLERGIES: CIPROFLOXACIN, BACTRIM. MEDICATIONS: MAR reconciled with home medications. REVIEW OF SYSTEMS: The patient relates that chest pain is off and on. A bit better with pain medications received in the Emergency Room. She is currently unable to lift her arms or legs. Describes them as numb as well. PHYSICAL EXAMINATION: VITAL SIGNS: From today show a blood pressure of 100/50, heart rate at 92, respiratory rate at 20. She is afebrile. GENERAL: This is a 31-year-old well-nourished, woman, currently hyperventilating in bed, family surrounding. HEENT: Shows no scleral icterus. NECK: Supple. LUNGS: Fairly clear with superficial breath taking. HEART: Slightly tachycardic. ABDOMEN: Has positive bowel sounds, soft, nontender. EXTREMITIES: Show no edema. She is not responding to commands at this time. LABORATORY DATA: CBC with a WBC of 11.4, hemoglobin 7.5, MCV of 61, platelets of 245. Chemistries with a BUN and creatinine of 8 and 0.8, potassium at 3.0, calcium at 8.4. CK negative. LFTs last night negative. IMAGING STUDIES: CTA negative for pulmonary embolism or dissection. ASSESSMENT AND PLAN: The patient is a 31-year-old woman with neurological symptoms that are incongruent with any neurological disorder. We will await Dr. Smart's input. Suspect this is psychosomatic rather than organic. We will give Ativan for hyperventilation and anxiety symptoms in the meantime. The patient is significantly anemic with microcytosis suspicious for iron deficiency. She apparently has had a history of previous transfusions. We will obtain iron studies to elucidate. Transfuse for hemoglobin of less than 7. Hypokalemia was noted this morning probably after rehydration. We will replete orally. DANTE BLACKWOOD MD DR: ED/nts JOB#: [id number] / [id number] MORRIS
[2017-01-27 16:35] LABS: INR 1.4 (0.8-1.1); PROTHROMBIN TIME PATIENT 15.9 SEC (11.7-14.0)
[2017-01-27] MEDS ORDERED: IRON SUCROSE COMPLEX 500 MG in IV NORMAL SALINE 250ML 250 ML IV ONE (18:00)
[2017-01-27 21:39] LABS: CREATINE KINASE 59 U/L (26-192)
[2017-01-27 21:43] LABS: CKMB MASS < 0.5 ng/mL (0.0-3.6)
[2017-01-27] MEDS: diphenhydrAMINE HCL 25 MG CAPSULE PO PRN (22:44)
[2017-01-28] VITALS (7 sets, daily range): BP systolic 104–121; BP diastolic 56–76
[2017-01-28] MEDS: LORazepam 0.5 MG TABLET PO SCH ×5 (00:07→23:58)
--- NOTE | 2017-01-28 04:26 | CONS ---
DATE OF CONSULTATION: 01/27/2017 REQUESTING PHYSICIAN: Dr. Jc Cedeno. REASON FOR CONSULTATION: Iron deficiency anemia. HISTORY OF PRESENT ILLNESS: The patient is a 31-year-old female who reports having had a history of chronic anemia at least since 2011. She recently relocated from [place]. She reports having had blood transfusions almost once a year. She reports that the etiology of anemia is heavy menstrual cycles. She is also considering a hysterectomy. She reports that she has 5 children and she has had tubal ligation. She denies nosebleeds or gum bleeding. No hematemesis, melena, hematochezia, no hemoptysis or hematuria. No loss of weight or loss of appetite. She presented to the Emergency Room on 01/25/2017 with chest pain. She also had associated headaches. She had weakness in her legs and generalized weakness. No visual changes or seizures. No fevers or chills. She underwent CT angiogram of the chest on 01/25/2017 that did not reveal any pulmonary embolism. Neurology was consulted. There is no evidence of any spinal cord injury per Neurology. Neurology felt that this could be a conversion reaction. Neurology recommended citalopram 20 mg to help with the headache and overall anxiety and mood. Her hemoglobin at the time of admission on 01/25/2017 was 7.5 and then it dropped to 7.0 on 01/26/2017. MCV was 60 with a platelet count of 232. I was asked to see the patient for further evaluation of anemia. PAST MEDICAL HISTORY: Anemia. SOCIAL HISTORY: No smoking or alcohol abuse. FAMILY HISTORY: Negative for any primary hematologic disorders. There is history of anemia in the family. REVIEW OF SYSTEMS: A 12-point review of systems was performed. Pertinent positives are mentioned in the history of present illness. Rest of the system review is negative. PHYSICAL EXAMINATION: GENERAL APPEARANCE: The patient is a 31-year-old female who is in no acute cardiorespiratory distress. VITAL SIGNS: Blood pressure 119/67, temperature 102.9. HEENT: Head atraumatic, normocephalic. Eyes: No icterus. NECK: Supple. CHEST: Bilaterally symmetrical. HEART: S1, S2 normal. ABDOMEN: Soft, nontender. CENTRAL NERVOUS SYSTEM: She is alert, awake and oriented x 3. LYMPHATICS: No lymphadenopathy. SKIN: No rashes. PSYCHOLOGIC: Mood and affect are appropriate. MUSCULOSKELETAL: No joint effusions. LABORATORY DATA: From 01/26/2017, WBC 11.2, hemoglobin 7, MCV 60, platelet count 232. Peripheral blood smear reveals evidence of polychromasia and anisocytosis and microcytosis. Creatinine is 0.8, calcium 8.4. Iron 6, TIBC 397, iron saturation 2, ferritin is 15. TSH 0.851. Total bilirubin 0.4, direct bilirubin 0.1, AST 19, ALT 21, alkaline phosphatase 60. IMPRESSION AND PLAN: 1. Iron deficiency anemia due to chronic blood loss. Etiology is thought to be heavy menstrual cycles. I have advised Gynecology consultation. The patient is very symptomatic and she wants to proceed with blood transfusion today. I have recommended IV iron infusion. I will order Venofer 500 mg IV x 1. I have advised her to follow up with me in about 2-3 weeks to reevaluate her hemoglobin and proceed with more iron infusions as needed. I discussed in detail with the patient and her mother and all her questions were answered. 2. Leukocytosis, mild. WBC is 11.2. She also has fever. There is no evidence of bands. I will continue to monitor. 3. Fever. Management per her primary physician. 4. I will also order B12, folic acid level, and reticulocyte count. I discussed with RN. OCTAVIO HORTON MD DR: NENO/laurie JOB#: [id number] / [id number] MORRIS
[2017-01-28 04:51] LABS: BASO # 0.1 x10^3/uL (0.0-0.2); BASO % 0 % (0-3); EOS % 1 % (0-3); HEMATOCRIT 25.4 % (36.0-47.0); HEMOGLOBIN 7.8 g/dL (12.0-15.5); LYMPH # 0.3 x10^3/uL (1.0-4.8); LYMPH % 3 % (24-48); MEAN CORPUSCULAR HEMOGLOBIN 19 pg (25-35); MEAN CORPUSCULAR HGB CONC 31 g/dL (31-37); MEAN CORPUSCULAR VOLUME 63 fL (79-100); MONO % 5 % (0-9); NEUT % 91 % (31-73); PLATELET COUNT 206 x10^3/uL (140-400); RED BLOOD COUNT 4.02 x10^6/uL (3.50-5.40); RED CELL DISTRIBUTION WIDTH 20.7 % (11.5-14.5); WHITE BLOOD COUNT 11.9 x10^3/uL (4.0-11.0)
--- NOTE | 2017-01-28 05:43 | RAD ---
INDICATION: fever
sent old film from 01.25.17 COMPARISON: 01/25/2017 FINDINGS: Single view of chest obtained. Hypoexpanded examination with prominent interstitial markings again seen. Cardiac silhouette is enlarged although a portion of this could be secondary to portable technique. Haziness at right lung base medially. IMPRESSION: Haziness at right lung base medially. Could be secondary to overlap of structures but a focus of atelectasis or infiltrate is not excluded given the presence of this finding. Cardiac silhouette is enlarged. This appears more prominent than prior but a portion of this could be technical in nature. If more accurate evaluation is desired a formal PA and lateral chest radiograph could be obtained to see if these findings persist. Electronically signed by: Kit Mckay MD (01/28/2017 5:39 AM) [id number]
[2017-01-28 05:55] LABS: CALCIUM 8.6 mg/dL (8.5-10.1); CREATININE 0.7 mg/dL (0.6-1.0); GFR 118.9; MAGNESIUM 1.9 mg/dL (1.8-2.4); POTASSIUM 3.3 mmol/L (3.5-5.1)
[2017-01-28] MEDS: IBUPROFEN 400 MG TABLET. PO PRN (06:39)
[2017-01-28] MEDS: CITALOPRAM 20 MG TABLET. PO SCH (08:10)
--- NOTE | 2017-01-28 09:07 | EKG ---
[facility] [address] [place] [address] Test Date: 2017-01-28 Test Time: 08:42:03 Pat Name: MYA CAMARILLO Department: Room: 8 Gender: F Internal Affairs Investigator: CLIVE : [id number] Requested By: ALEXUS EDMONDS Order Number: [id number] Reading MD: Jane Caruso Measurements Intervals [place] Rate: 116 P: 55 MD: 116 QRS: 51 QRSD: 88 T: 13 QT: 320 QTc: 451 Interpretive Statements SINUS TACHYCARDIA OTHERWISE NORMAL EKG Electronically Signed On 01-28-2017 20:07:23 CDT by Jane Caruso
[2017-01-28] MEDS ORDERED: GADOBUTROL 7.5 MMOL/7.5 ML VIAL IV ONE (10:15)
[2017-01-28 10:23] LABS: PLT ESTIMATE ADEQUATE (ADEQUATE)
[2017-01-28 10:24] LABS: HYPOCHROMIA PRESENT; POIKILOCYTOSIS PRESENT
[2017-01-28 10:25] LABS: ANISOCYTOSIS MOD; MICROCYTOSIS MARKED; OVALOCYTES PRESENT; SCHISTOCYTES OCC; TEAR DROP CELLS PRESENT
--- NOTE | 2017-01-28 10:49 | RAD ---
MRI Lumbar Spine without and with contrast History: Bilateral leg weakness Technique: Multiplanar, multi sequential pre and postcontrast MR imaging was performed of the lumbar spine. Contrast: 7.5 cc Gadavist Comparison: None Findings: Lumbar vertebral body stature and AP alignment are preserved. Intervertebral disc spaces are maintained. There is no significant marrow edema. Conus terminates normally at the inferior aspect L1. There is no nodular enhancement of the conus or cauda equina, no appreciable enhancement of the descending nerve roots. There is no significant focal posterior disc abnormality of the lumbar spine. There is no significant lumbar spinal stenosis or neural foramina compromise at any level. There is a 1.1 cm Tarlov cyst at S2-3. Impression: 1. Other than small Tarlov cyst of the sacrum, no significant abnormality is identified. Electronically signed by: Anastacio Stuart MD (01/28/2017 10:46 AM) [id number]
[2017-01-28] MEDS: ASA/APAP/CAFFEINE 250/250/65MG TABLET. PO PRN (11:26)
--- NOTE | 2017-01-28 11:51 | PDOC ---
PROGRESS NOTES Subjective Subjective HPI- Iron deficiency anemia due to chronic blood loss. Etiology is thought to be heavy menstrual cycles. ROS-has CP Objective Objective Vital Signs Date Time Temp Pulse Resp B/P (MAP) Pulse Ox O2 Delivery O2 Flow Rate FiO2 01/28/17 08:00 Room Air 01/28/17 06:08 99.4 151 24 115/74 (88) 99 99.4 01/27/17 11:00 2.0 Physical Exam Heart: Normal S1, Normal S2 General: Alert, Oriented X3 Lungs: Clear to auscultation Neuro: Normal speech Psych/Mental Status: Mental status NL Assessment Assessment Problems Medical Problems: (1) Chest pain Status: Acute (2) Weakness Status: Acute IMPRESSION AND PLAN: 1. Iron deficiency anemia due to chronic blood loss. Etiology is thought to be heavy menstrual cycles. I have advised Gynecology consultation. The patient is very symptomatic and she wants to proceed with blood transfusion today. I have recommended IV iron infusion. I will order Venofer 500 mg IV x 1. I have advised her to follow up with me in about 2-3 weeks to reevaluate her hemoglobin and proceed with more iron infusions as needed. I discussed in detail with the patient and her mother and all her questions were answered. s/p 1 PRBC and venofer 01/27/17 Hb 7.8 on 01/28/17. 2. Leukocytosis, mild. WBC is 11.2. She also has fever. There is no evidence of bands. I will continue to monitor. 3. Fever. Management per her primary physician. 4. B12 is 343 on 01/27/17 - start B12 1000 mcg PO daily. Comment Review of Relevant I have reviewed the following items ralph (where applicable) has been applied. Labs Laboratory Tests Test 01/26/17 13:10 01/27/17 10:24 01/27/17 12:45 01/27/17 14:55 Thyroid Stimulating Hormone (TSH) 0.851 uIU/mL (0.358-3.74) Free Thyroxine 0.95 ng/dL (0.76-1.46) Urine Opiates Screen Pos (NEG) Urine Methadone Screen Neg (NEG) Urine Barbiturates Pos (NEG) Urine Phencyclidine Screen Neg (NEG) Urine Amphetamine/Methamphetamine Neg (NEG) Urine Benzodiazepines Screen Neg (NEG) Urine Cocaine Screen Neg (NEG) Urine Cannabinoids Screen Pos (NEG) Urine Ethyl Alcohol Neg (NEG) Creatine Kinase 53 U/L (26-192) Vitamin B12 Level 343 pg/mL (247-911) Serum Folate 12.86 ng/ml (3.2-20.0) Iron Level 6 ug/dL (50-170) Total Iron Binding Capacity 397 ug/dL (250-450) Iron Saturation 2 % (15-34) Ferritin 15 ng/mL (8-252) Test 01/27/17 16:00 01/27/17 20:30 01/27/17 20:45 01/28/17 04:35 Reticulocyte Count (auto) 1.3 % (0.5-2.5) Prothrombin Time 15.9 SEC (11.7-14.0) Prothromb Time International Ratio 1.4 (0.8-1.1) Glucose (Fingerstick) 109 mg/dL (70-99) Creatine Kinase 59 U/L (26-192) Creatine Kinase MB (Mass) < 0.5 ng/mL (0.0-3.6) Creatine Kinase MB Relative Index 0.8 % (0-4) Troponin I Quantitative < 0.017 ng/mL (0.000-0.055) White Blood Count 11.9 x10^3/uL (4.0-11.0) Red Blood Count 4.02 x10^6/uL (3.50-5.40) Hemoglobin 7.8 g/dL (12.0-15.5) Hematocrit 25.4 % (36.0-47.0) Mean Corpuscular Volume 63 fL (79-100) Mean Corpuscular Hemoglobin 19 pg (25-35) Mean Corpuscular Hemoglobin Concent 31 g/dL (31-37) Red Cell Distribution Width 20.7 % (11.5-14.5) Platelet Count 206 x10^3/uL (140-400) Neutrophils (%) (Auto) 91 % (31-73) Lymphocytes (%) (Auto) 3 % (24-48) Monocytes (%) (Auto) 5 % (0-9) Eosinophils (%) (Auto) 1 % (0-3) Basophils (%) (Auto) 0 % (0-3) Neutrophils # (Auto) 10.9 x10^3uL (1.8-7.7) Lymphocytes # (Auto) 0.3 x10^3/uL (1.0-4.8) Monocytes # (Auto) 0.6 x10^3/uL (0.0-1.1) Eosinophils # (Auto) 0.1 x10^3/uL (0.0-0.7) Basophils # (Auto) 0.1 x10^3/uL (0.0-0.2) Segmented Neutrophils % 78 % (35-66) Band Neutrophils % 17 % (0-9) Lymphocytes % 1 % (24-48) Monocytes % 4 % (0-10) Platelet Estimate Adequate (ADEQUATE) Hypochromasia Present Poikilocytosis Present Anisocytosis Mod Microcytosis Marked Tear Drop Cells Present Ovalocytes Present Schistocytes Occ Sodium Level 137 mmol/L (136-145) Potassium Level 3.3 mmol/L (3.5-5.1) Chloride Level 104 mmol/L (98-107) Carbon Dioxide Level 21 mmol/L (21-32) Anion Gap 12 (6-14) Blood Urea Nitrogen 8 mg/dL (7-20) Creatinine 0.7 mg/dL (0.6-1.0) Estimated GFR (Cockcroft-Gault) 118.9 Glucose Level 113 mg/dL (70-99) Calcium Level 8.6 mg/dL (8.5-10.1) Magnesium Level 1.9 mg/dL (1.8-2.4) Laboratory Tests Test 01/27/17 12:45 01/27/17 14:55 01/27/17 16:00 01/27/17 20:30 Creatine Kinase 53 U/L (26-192) Vitamin B12 Level 343 pg/mL (247-911) Serum Folate 12.86 ng/ml (3.2-20.0) Iron Level 6 ug/dL (50-170) Total Iron Binding Capacity 397 ug/dL (250-450) Iron Saturation 2 % (15-34) Ferritin 15 ng/mL (8-252) Reticulocyte Count (auto) 1.3 % (0.5-2.5) Prothrombin Time 15.9 SEC (11.7-14.0) Prothromb Time International Ratio 1.4 (0.8-1.1) Glucose (Fingerstick) 109 mg/dL (70-99) Test 01/27/17 20:45 01/28/17 04:35 Creatine Kinase 59 U/L (26-192) Creatine Kinase MB (Mass) < 0.5 ng/mL (0.0-3.6) Creatine Kinase MB Relative Index 0.8 % (0-4) Troponin I Quantitative < 0.017 ng/mL (0.000-0.055) White Blood Count 11.9 x10^3/uL (4.0-11.0) Red Blood Count 4.02 x10^6/uL (3.50-5.40) Hemoglobin 7.8 g/dL (12.0-15.5) Hematocrit 25.4 % (36.0-47.0) Mean Corpuscular Volume 63 fL (79-100) Mean Corpuscular Hemoglobin 19 pg (25-35) Mean Corpuscular Hemoglobin Concent 31 g/dL (31-37) Red Cell Distribution Width 20.7 % (11.5-14.5) Platelet Count 206 x10^3/uL (140-400) Neutrophils (%) (Auto) 91 % (31-73) Lymphocytes (%) (Auto) 3 % (24-48) Monocytes (%) (Auto) 5 % (0-9) Eosinophils (%) (Auto) 1 % (0-3) Basophils (%) (Auto) 0 % (0-3) Neutrophils # (Auto) 10.9 x10^3uL (1.8-7.7) Lymphocytes # (Auto) 0.3 x10^3/uL (1.0-4.8) Monocytes # (Auto) 0.6 x10^3/uL (0.0-1.1) Eosinophils # (Auto) 0.1 x10^3/uL (0.0-0.7) Basophils # (Auto) 0.1 x10^3/uL (0.0-0.2) Segmented Neutrophils % 78 % (35-66) Band Neutrophils % 17 % (0-9) Lymphocytes % 1 % (24-48) Monocytes % 4 % (0-10) Platelet Estimate Adequate (ADEQUATE) Hypochromasia Present Poikilocytosis Present Anisocytosis Mod Microcytosis Marked Tear Drop Cells Present Ovalocytes Present Schistocytes Occ Sodium Level 137 mmol/L (136-145) Potassium Level 3.3 mmol/L (3.5-5.1) Chloride Level 104 mmol/L (98-107) Carbon Dioxide Level 21 mmol/L (21-32) Anion Gap 12 (6-14) Blood Urea Nitrogen 8 mg/dL (7-20) Creatinine 0.7 mg/dL (0.6-1.0) Estimated GFR (Cockcroft-Gault) 118.9 Glucose Level 113 mg/dL (70-99) Calcium Level 8.6 mg/dL (8.5-10.1) Magnesium Level 1.9 mg/dL (1.8-2.4) Microbiology 01/27/17 Urine Culture - Preliminary, Resulted 01/27/17 Urine Culture Result 1 (LATISHA) - Preliminary, Resulted Medications Current Medications Lorazepam (Ativan) 1 mg 1X ONCE PO Last administered on 01/25/17 20:50; Start 01/25/17 at 20:45; Stop 01/25/17 at 20:48; Status DC Lorazepam (Ativan) 1 mg STK-MED ONCE .ROUTE ; Start 01/25/17 at 20:48; Stop 01/25/17 at 20:49; Status DC Hydromorphone HCl (Dilaudid) 0.5 mg 1X ONCE IV Last administered on 01/25/17 21:31; Start 01/25/17 at 21:30; Stop 01/25/17 at 21:31; Status DC Iohexol (Omnipaque 300 Mg/ml) 75 ml 1X ONCE IV Last administered on 01/25/17 21:46; Start 01/25/17 at 21:45; Stop 01/25/17 at 21:46; Status DC Info (Do NOT chart on this entry -- for MONITORING) 1 each PRN DAILY PRN MC SEE COMMENTS; Start 01/25/17 at 21:45; Stop 01/27/17 at 21:44; Status DC Ondansetron HCl (Zofran) 4 mg PRN Q8HRS PRN IV NAUSEA/VOMITING Last administered on 01/26/17 02:23; Start 01/25/17 at 23:45; Stop 01/26/17 at 12:46 ; Status DC Morphine Sulfate 2 mg PRN Q2HR PRN IV PAIN Last administered on 01/26/17 07:52 ; Start 01/25/17 at 23:45; Stop 01/26/17 at 09:38; Status DC Diphenhydramine HCl (Benadryl) 25 mg PRN Q6HRS PRN IVP ITCHING Last administered on 01/26/17 03:00; Start 01/26/17 at 02:45; Stop 01/26/17 at 09:38 ; Status DC Hydromorphone HCl (Dilaudid) 1 mg PRN Q4HRS PRN IV PAIN Last administered on 05:07; Start 01/26/17 at 02:45; Stop 01/26/17 at 09:38; Status DC Sodium Chloride 1,000 ml @ 100 mls/hr 1X ONCE IV Last administered on 10:15; Start 01/26/17 at 09:45; Stop 01/26/17 at 19:44; Status DC Potassium Chloride 100 ml @ 100 mls/hr Q1H IV Last administered on 01/26/17 13:00; Start 01/26/17 at 10:00; Stop 01/26/17 at 13:59; Status DC Ibuprofen (Motrin) 400 mg PRN Q6HRS PRN PO INFLAMMATION Last administered on 06:39; Start 01/26/17 at 09:45 Diphenhydramine HCl (Benadryl) 25 mg PRN Q6HRS PRN PO ITCHING Last administered on 01/27/17 22:44; Start 01/26/17 at 09:45 Citalopram Hydrobromide (CeleXA) 20 mg DAILY PO Last administered on 08:10; Start 01/26/17 at 13:00 Lorazepam (Ativan) 0.5 mg 1X ONCE IV Last administered on 01/26/17 15:03; Start 01/26/17 at 15:00; Stop 01/26/17 at 15:01; Status DC Lorazepam (Ativan) 0.5 mg PRN Q6HRS PRN PO ANXIETY / AGITATION Last administered on 01/27/17 09:33; Start 01/26/17 at 16:30; Stop 01/27/17 at 12:46 ; Status DC Lorazepam (Ativan) 0.5 mg PRN Q6HRS PRN IV ANXIETY / AGITATION Last administered on 01/27/17 20:52; Start 01/26/17 at 16:30 Acetaminophen/ Aspirin/Caffeine (Excedrin Migraine) 1 tab PRN Q6HRS PRN PO MIGRAINE HEADACHE Last administered on 01/28/17 11:26; Start 01/27/17 at 06:30 Lorazepam (Ativan) 0.5 mg Q6HRS PO Last administered on 01/28/17 11:30; Start 01/27/17 at 13:00 Potassium Chloride (Klor-Con) 40 meq 1X ONCE PO Last administered on 15:42; Start 01/27/17 at 15:00; Stop 01/27/17 at 15:01; Status DC Ondansetron HCl (Zofran Odt) 4 mg PRN Q6HRS PRN PO NAUSEA/VOMITING Last administered on 01/27/17 15:03; Start 01/27/17 at 15:00 Ondansetron HCl (Zofran Odt) 8 mg PRN Q6HRS PRN PO NAUSEA/VOMITING Last administered on 01/27/17 23:05; Start 01/27/17 at 15:00 Iron Sucrose 500 mg/Sodium Chloride 275 ml @ 78.571 mls/ hr 1X ONCE IV Last administered on 01/27/17 20:53; Start 01/27/17 at 18:00; Stop 01/27/17 at 21:29 ; Status DC Acetaminophen (Tylenol) 650 mg PRN Q6HRS PRN PO MILD PAIN / TEMP; Start at 02:15 Gadobutrol (Gadavist) 7.5 mmol 1X ONCE IV Last administered on 01/28/17 10: 18; Start 01/28/17 at 10:15; Stop 01/28/17 at 10:16; Status DC Active Scripts Active Reported Iron (Ferrous Sulfate) 325 Mg Tablet 325 Mg PO QID Proair Hfa Inhaler (Albuterol Sulfate) 8.5 Gm Hfa.aer.ad 1 Puff INH PRN Q6HRS PRN Vitals/I & O Vital Sign - Last 24 Hours 01/27/17 01/27/17 01/27/17 01/27/17 15:19 18:16 18:32 19:30 Temp 102.9 100.1 99.1 99.1 102.9 100.1 99.1 99.1 Pulse 111 114 99 93 Resp 18 18 18 20 B/P (MAP) 119/67 (84) 111/63 113/63 120/53 (75) Pulse Ox 100 99 O2 Delivery Room Air Room Air 01/27/17 01/27/17 01/27/17 01/27/17 19:32 20:00 20:20 20:20 Temp 99.1 98.1 98.1 99.1 98.1 98.1 Pulse 93 127 129 Resp 20 24 24 B/P (MAP) 120/53 125/83 125/83 (97) Pulse Ox 100 O2 Delivery Room Air Room Air 01/27/17 01/28/17 01/28/17 01/28/17 22:15 01:31 06:08 08:00 Temp 102.0 101.1 99.4 102.0 101.1 99.4 Pulse 109 131 151 Resp 20 20 24 B/P (MAP) 119/58 (78) 114/56 (75) 115/74 (88) Pulse Ox 98 99 O2 Delivery Room Air Room Air Room Air OCTAVIO HORTON MD Jan 28, 2017 11:51
--- NOTE | 2017-01-28 13:14 | PDOC2 ---
RAMOS WARD MANAGER OPERATIONS 01/28/17 1314: CARDIAC CONSULT DATE OF CONSULT Date of Consult DATE: 01/28/17 TIME: 13:07 REASON FOR CONSULT Reason for Consult: Chest pain REFERRING PHYSICIAN Referring Physician: Maria T SOURCE Source: Chart review, Patient HISTORY OF PRESENT ILLNESS HISTORY OF PRESENT ILLNESS This is a 31 yo female admitted for complains of chest pain. Reports that she has been having migraine in the last 2 weeks and has been having intermittent bouts of nausea and vomiting. Denies any palpitations, SOA. Upon admission he she has been noted with fever. Also has vomited today and complains of sharp nonradiating and reproducible mid chest pain. Notable for anemia as well with post transfusion. Denies any congenital heart disease. Denies any VTE, falls or any recent injury. PAST MEDICAL HISTORY Pulmonary: Asthma CENTRAL NERVOUS SYSTEM: Migraine Heme/Onc: Anemia NOS (menorrhagia) PAST SURGICAL HISTORY Past Surgical History: Tubal Ligation FAMILY HISTORY Family History noncontributory to CV SOCIAL HISTORY Smoke: <1 pack per day ALCOHOL: none Drugs: None Lives: with Family CURRENT MEDICATIONS CURRENT MEDICATIONS Current Medications Medications (Trade) Dose Ordered Sig/Rashaun Route PRN Reason Start Time Stop Time Status Last Admin Dose Admin Potassium Chloride (Klor-Con) 40 meq 1X ONCE PO 01/27/17 15:00 01/27/17 15:01 DC 01/27/17 15:42 Ondansetron HCl (Zofran Odt) 4 mg PRN Q6HRS PRN PO NAUSEA/VOMITING 01/27/17 15:00 01/27/17 15:03 Ondansetron HCl (Zofran Odt) 8 mg PRN Q6HRS PRN PO NAUSEA/VOMITING 01/27/17 15:00 01/27/17 23:05 Iron Sucrose 500 mg/Sodium Chloride 275 ml @ 78.571 mls/ hr 1X ONCE IV 01/27/17 18:00 01/27/17 21:29 DC 01/27/17 20:53 Gadobutrol (Gadavist) 7.5 mmol 1X ONCE IV 01/28/17 10:15 01/28/17 10:16 DC 01/28/17 10:18 ALLERGIES ALLERGIES: Coded Allergies: ciprofloxacin (Verified Allergy, Intermediate, 01/25/17) sulfamethoxazole (Verified Allergy, Intermediate, 01/25/17) trimethoprim (Verified Allergy, Intermediate, 01/25/17) ROS Review of System 14 point ROS evaluated with pertinent positives noted per HPI PHYSICAL EXAM General: Alert, Oriented X3, Cooperative, No acute distress HEENT: Atraumatic, Mucous membr. moist/pink Lungs: Clear to auscultation, Normal air movement Heart: Regular rate (Sinus tach), Normal S1, Normal S2, No murmurs Abdomen: Soft, Other (epigastric tenderness) Extremities: No cyanosis, No edema Skin: No breakdown, No significant lesion Neuro: Normal speech, Sensation intact Psych/Mental Status: Mental status NL, Mood NL MUSCULOSKELETAL: Full range of motion without pain VITALS VITALS Vital Signs Date Time Temp Pulse Resp B/P (MAP) Pulse Ox O2 Delivery O2 Flow Rate FiO2 01/28/17 11:00 98.8 111 18 113/65 (81) 96 Room Air 98.8 01/27/17 11:00 2.0 LABS Lab: Laboratory Tests Test 01/27/17 14:55 01/27/17 16:00 01/27/17 20:30 01/27/17 20:45 Iron Level 6 ug/dL (50-170) Total Iron Binding Capacity 397 ug/dL (250-450) Iron Saturation 2 % (15-34) Ferritin 15 ng/mL (8-252) Reticulocyte Count (auto) 1.3 % (0.5-2.5) Prothrombin Time 15.9 SEC (11.7-14.0) Prothromb Time International Ratio 1.4 (0.8-1.1) Glucose (Fingerstick) 109 mg/dL (70-99) Creatine Kinase 59 U/L (26-192) Creatine Kinase MB (Mass) < 0.5 ng/mL (0.0-3.6) Creatine Kinase MB Relative Index 0.8 % (0-4) Troponin I Quantitative < 0.017 ng/mL (0.000-0.055) Test 01/28/17 04:35 White Blood Count 11.9 x10^3/uL (4.0-11.0) Red Blood Count 4.02 x10^6/uL (3.50-5.40) Hemoglobin 7.8 g/dL (12.0-15.5) Hematocrit 25.4 % (36.0-47.0) Mean Corpuscular Volume 63 fL (79-100) Mean Corpuscular Hemoglobin 19 pg (25-35) Mean Corpuscular Hemoglobin Concent 31 g/dL (31-37) Red Cell Distribution Width 20.7 % (11.5-14.5) Platelet Count 206 x10^3/uL (140-400) Neutrophils (%) (Auto) 91 % (31-73) Lymphocytes (%) (Auto) 3 % (24-48) Monocytes (%) (Auto) 5 % (0-9) Eosinophils (%) (Auto) 1 % (0-3) Basophils (%) (Auto) 0 % (0-3) Neutrophils # (Auto) 10.9 x10^3uL (1.8-7.7) Lymphocytes # (Auto) 0.3 x10^3/uL (1.0-4.8) Monocytes # (Auto) 0.6 x10^3/uL (0.0-1.1) Eosinophils # (Auto) 0.1 x10^3/uL (0.0-0.7) Basophils # (Auto) 0.1 x10^3/uL (0.0-0.2) Segmented Neutrophils % 78 % (35-66) Band Neutrophils % 17 % (0-9) Lymphocytes % 1 % (24-48) Monocytes % 4 % (0-10) Platelet Estimate Adequate (ADEQUATE) Hypochromasia Present Poikilocytosis Present Anisocytosis Mod Microcytosis Marked Tear Drop Cells Present Ovalocytes Present Schistocytes Occ Sodium Level 137 mmol/L (136-145) Potassium Level 3.3 mmol/L (3.5-5.1) Chloride Level 104 mmol/L (98-107) Carbon Dioxide Level 21 mmol/L (21-32) Anion Gap 12 (6-14) Blood Urea Nitrogen 8 mg/dL (7-20) Creatinine 0.7 mg/dL (0.6-1.0) Estimated GFR (Cockcroft-Gault) 118.9 Glucose Level 113 mg/dL (70-99) Calcium Level 8.6 mg/dL (8.5-10.1) Magnesium Level 1.9 mg/dL (1.8-2.4) ASSESSMENT/PLAN ASSESSMENT/PLAN 1. Fever: Tmax 102, presently 101. Defer to PCP. Post transfusion. 2. Anemia with hx of menorrhagia: hematology following. 3. Atypical Chest pain: doubt ACS. sinus tach due to fever and anemia. Suspect GI. Reproducible as well. 4. Possible conversion disorder/migraine: neurology following 5. Marijuana use Recommendations 1. TTE today. Repeat EKG. No further w/u if TTE is unremarkable 2. Blood transfusion and K replacement per PCP 3. GI cocktail. Start on PPI. Problems: GORDY CALABRESE MD 01/28/17 4754: CARDIAC CONSULT ALLERGIES ALLERGIES: Coded Allergies: ciprofloxacin (Verified Allergy, Intermediate, 01/25/17) sulfamethoxazole (Verified Allergy, Intermediate, 01/25/17) trimethoprim (Verified Allergy, Intermediate, 01/25/17) ASSESSMENT/PLAN ASSESSMENT/PLAN Patient seen and examined. Agree with CARPET RENOVATOR's assessment and plan. CP with atypical features and most probably GI etiology. Consider PPI's [place] ruled out 2D echo showed normal LV function without any wall motion abnormalities Continue transfusion for anemia and K replacement for hypokalemia No further cardiac workup is indicated Thank you for your consultation Problems: RAMOS WARD APRN Jan 28, 2017 13:14 GORDY CALABRESE MD Jan 28, 2017 18:54
[2017-01-28] MEDS: ONDANSETRON ODT 4 MG TAB.RAPDIS. PO PRN (13:19)
[2017-01-28] MEDS ORDERED: LIDO:MAALOX:DONNATAL 1:1:1 15 ML SINGLE DOSE SWSW ONE (13:45)
[2017-01-28] MEDS: PANTOPRAZOLE 40 MG TABLET.DR. PO SCH (13:52)
[2017-01-28] MEDS ORDERED: VANCOMYCIN 1 GM in IV NORMAL SALINE 250ML 250 ML IV SCH (14:30)
--- NOTE | 2017-01-28 14:30 | PDOC ---
PROGRESS NOTES Chief Complaint Chief Complaint Chest pain paraplegia ASSESSMENT AND PLAN: 1. Sepsis: fevers, leukocytosis, tachycardia; BP remains stable. 2. Bacteremia: GNR in blood <12 hrs after blood draw. start cefepime. await cult and sensitivity. pt had E.coli UTI 2 weeks ago; ER urine contaminated. rpt 3. 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 started on celexa and ativan for now. encouraged to work with OT/PT 4. Anemia: iron studies c/w deficiency suspect 2/2 menorrhagia. transfused PRBC x1; appreciate Dr Weller's input: IV iron x1 5. Hypokalemia: replete orally 6. Back pain: poss 2/2 UTI vs musculoskeleta;. treat symptomatically, NSAIDs , oxy PRN 7. Prophylaxis: lovenox, PPR History of Present Illness History of Present Illness feels weak, ill, with fevers. + back pain, wants to be put to sleep Vitals Vitals Vital Signs Date Time Temp Pulse Resp B/P (MAP) Pulse Ox O2 Delivery O2 Flow Rate FiO2 01/28/17 13:15 101.3 127 20 121/69 (86) 100 Room Air 101.3 01/27/17 11:00 2.0 Physical Exam General: Alert, Oriented X3, Cooperative, No acute distress Heart: Regular rate (Sinus tach), No murmurs Lungs: Clear Abdomen: Soft, Other (epigastric tenderness) Extremities: No cyanosis, No edema Skin: No rashes Labs LABS Laboratory Tests Test 01/27/17 14:55 01/27/17 16:00 01/27/17 20:30 01/27/17 20:45 Iron Level 6 ug/dL (50-170) Total Iron Binding Capacity 397 ug/dL (250-450) Iron Saturation 2 % (15-34) Ferritin 15 ng/mL (8-252) Reticulocyte Count (auto) 1.3 % (0.5-2.5) Prothrombin Time 15.9 SEC (11.7-14.0) Prothromb Time International Ratio 1.4 (0.8-1.1) Glucose (Fingerstick) 109 mg/dL (70-99) Creatine Kinase 59 U/L (26-192) Creatine Kinase MB (Mass) < 0.5 ng/mL (0.0-3.6) Creatine Kinase MB Relative Index 0.8 % (0-4) Troponin I Quantitative < 0.017 ng/mL (0.000-0.055) Test 01/28/17 04:35 White Blood Count 11.9 x10^3/uL (4.0-11.0) Red Blood Count 4.02 x10^6/uL (3.50-5.40) Hemoglobin 7.8 g/dL (12.0-15.5) Hematocrit 25.4 % (36.0-47.0) Mean Corpuscular Volume 63 fL (79-100) Mean Corpuscular Hemoglobin 19 pg (25-35) Mean Corpuscular Hemoglobin Concent 31 g/dL (31-37) Red Cell Distribution Width 20.7 % (11.5-14.5) Platelet Count 206 x10^3/uL (140-400) Neutrophils (%) (Auto) 91 % (31-73) Lymphocytes (%) (Auto) 3 % (24-48) Monocytes (%) (Auto) 5 % (0-9) Eosinophils (%) (Auto) 1 % (0-3) Basophils (%) (Auto) 0 % (0-3) Neutrophils # (Auto) 10.9 x10^3uL (1.8-7.7) Lymphocytes # (Auto) 0.3 x10^3/uL (1.0-4.8) Monocytes # (Auto) 0.6 x10^3/uL (0.0-1.1) Eosinophils # (Auto) 0.1 x10^3/uL (0.0-0.7) Basophils # (Auto) 0.1 x10^3/uL (0.0-0.2) Segmented Neutrophils % 78 % (35-66) Band Neutrophils % 17 % (0-9) Lymphocytes % 1 % (24-48) Monocytes % 4 % (0-10) Platelet Estimate Adequate (ADEQUATE) Hypochromasia Present Poikilocytosis Present Anisocytosis Mod Microcytosis Marked Tear Drop Cells Present Ovalocytes Present Schistocytes Occ Sodium Level 137 mmol/L (136-145) Potassium Level 3.3 mmol/L (3.5-5.1) Chloride Level 104 mmol/L (98-107) Carbon Dioxide Level 21 mmol/L (21-32) Anion Gap 12 (6-14) Blood Urea Nitrogen 8 mg/dL (7-20) Creatinine 0.7 mg/dL (0.6-1.0) Estimated GFR (Cockcroft-Gault) 118.9 Glucose Level 113 mg/dL (70-99) Calcium Level 8.6 mg/dL (8.5-10.1) Magnesium Level 1.9 mg/dL (1.8-2.4) DANTE BLACKWOOD MD Jan 28, 2017 14:30
[2017-01-28] MEDS ORDERED: VANCOMYCIN 1.75 GM in IV NORMAL SALINE 500ML BAG 500 ML IV ONE (14:45)
--- NOTE | 2017-01-28 15:06 | EKG ---
[facility] [address] [place] [address] Test Date: 2017-01-28 Test Time: 13:30:38 Pat Name: MYA CAMARILLO Department: Room: 578 Gender: F Account Information Clerk: : 1985 Requested By: RAMOS WARD Order Number: [id number] Reading MD: Jane Caruso Measurements Intervals [place] Rate: 133 P: 67 NV: 98 QRS: 69 QRSD: 90 T: 5 QT: 308 QTc: 460 Interpretive Statements SINUS TACHYCARDIA OTHERWISE NORMAL ECG Electronically Signed On 01-28-2017 20:12:42 CDT by Jane Caruso
--- NOTE | 2017-01-28 15:20 | RAD ---
Indication shortness of breath. A single view of the chest was obtained at 1456. Comparison is made to an examination at 0520 the same day. Heart size is unchanged. There is no evidence of gross congestive heart failure. No consolidated pneumonia is seen. Significant pleural fluid is not present and there is no pneumothorax. IMPRESSION: No definite acute finding apparent in the chest
[2017-01-28] MEDS: ACETAMINOPHEN 325 MG TABLET. PO PRN ×2 (15:56→21:32)
--- NOTE | 2017-01-28 16:23 | CARD ---
APPROVED REPORT EXAM: Two-dimensional and M-mode echocardiogram with Doppler and color Doppler. Other Information Quality : Good INDICATION Chest Pain 2D DIMENSIONS RVDd2.4 (2.9-3.5cm)Left Atrium(2D)2.8 (1.6-4.0cm) IVSd1.0 (0.7-1.1cm)Aortic Root(2D)2.5 (2.0-3.7cm) LVDd4.7 (3.9-5.9cm)LVOT Diameter2.1 (1.8-2.4cm) PWd1.1 (0.7-1.1cm)LVDs3.2 (2.5-4.0cm) FS (%) 31.4 %SV60.0 ml LVEF(%)59.2 (>50%) Aortic Valve AoV Peak Benton.202.0cm/sAoV VTI26.0cm AO Peak GR.16.3mmHgLVOT Peak Benton.151.5cm/s AO Mean GR.8mmHgAVA (VMAX)2.60cm2 KAYLEEN (VTI)2.80cm2 Mitral Valve MV E Ttupwlqq703.9cm/sMV DECEL OAUM64pg MV A Hswtomlo144.3cm/sE/A Ratio1.3 Tricuspid Valve TR P. Msbngwxq494fm/sRAP [id number] TR Peak Gr.00tbXhVGUJ09heMg Pulmonary Vein S1 Vjwvhwkz22.4cm/sD2 Mabuyhed10.6cm/s LEFT VENTRICLE The left ventricle is normal size. There is normal left ventricular wall thickness. The left ventricu lar systolic function is normal and the ejection fraction is within normal range. The Ejection Fracti on is 55-60%. There is normal LV segmental wall motion. The left ventricular diastolic function and f illing is normal for age. RIGHT VENTRICLE The right ventricle is normal size. The right ventricular systolic function is normal. ATRIA The left atrium size is normal. The right atrium size is normal. The interatrial septum is intact wit h no evidence for an atrial septal defect or patent foramen ovale as noted on 2-D or Doppler imaging. AORTIC VALVE The aortic valve is not well visualized. Doppler and Color Flow revealed no significant aortic regurg itation. There is no significant aortic valvular stenosis. MITRAL VALVE The mitral valve is normal in structure and function. There is no evidence of mitral valve prolapse. There is no mitral valve stenosis. Doppler and Color-flow revealed trace to mild mitral regurgitation . TRICUSPID VALVE The tricuspid valve is normal in structure and function. Doppler and Color Flow revealed no tricuspid valve regurgitation noted. There is no tricuspid valve stenosis. PULMONIC VALVE Doppler and Color Flow revealed trace pulmonic valvular regurgitation. There is no pulmonic valvular stenosis. GREAT VESSELS The aortic root is normal in size. The ascending aorta is normal in size. The IVC is normal in size a nd collapses >50% with inspiration. PERICARDIAL EFFUSION There is no evidence of significant pericardial effusion. Critical Notification Critical Value: No <Conclusion> The left ventricular systolic function is normal and the ejection fraction is within normal range. Th e Ejection Fraction is 55-60%. There is normal LV segmental wall motion.
[2017-01-28] MEDS ORDERED: POTASSIUM CHLORIDE 20 MEQ TABLET.ER. PO ONE (17:30)
[2017-01-28] MEDS: CEFEPIME HCL 1 GM in IV NORMAL SALINE 50ML 50 ML IV SCH ×2 (17:41→23:56)
[2017-01-28] MEDS: VANCOMYCIN PER PHARMACY MC PRN (17:55)
[2017-01-28] MEDS: ENOXAPARIN 40 MG/0.4 ML SYRINGE. SQ SCH (18:00)
[2017-01-28] MEDS: oxyCODONE IR 5 MG TABLET PO PRN (18:37)
--- NOTE | 2017-01-28 19:15 | PDOC ---
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 Anemia. Panic attack. Cannabinoids positive. Opiate positive. Conversion disorder. RECOMMENDATIONS/PLAN: Patient declined LP for CSF exam. Consulted Hematology for anemia. OT/PT. L-spine MRI w/wo contrast: No acute abnormal findings. PAST MEDICAL HISTORY: 1. She reports that she had a similar spell 5 years ago in [place] when she was anemic. She was totally paralyzed and she was hospitalized for 3-4 days and made improvement, but it took 3 weeks to gain back all of her strength. 2. Asthma. 3. Migraine headache with chronic daily headaches. PAST SURGICAL HISTORY: Bilateral tubal ligation and tubal . ALLERGIES: CIPROFLOXACIN, SULFA AND TRIMETHOPRIM. FAMILY HISTORY: Several family members have iron deficient anemia. SOCIAL HISTORY: She is single. She has 5 children, but only two presently live with her. The 5 children come from at least 3 different fathers. She does not smoke tobacco or drink excessive alcohol. She has relocated from [place] to live with her mother. MEDICATIONS: Refer to [facility] REVIEW OF SYSTEMS: Constitutional: No malnutrition, weight loss, cachexia. Head: No traumatic brain or head injury. Skin: No edema, or rash. Ear: No infection. Eyes: No vision loss, or diplopia. Nose: No bleeding or purulent discharges. Hearing: No hearing decrease. Neck: No injury. Breast: No history of cancer, masses, or discharges. Cardiac: No SC, arrhythmia Pulmonary: No pneumonia. GI: No GI Ulcer, GI bleeding Urinary/genital: UTI. Endocrine: No cousin face, craniofacial dysmorphism, polydactyly. Skeletomuscular: No muscular atrophy, deformity. Neurological: see HP. Psychiatric: drug use/abuse. Otherwise, not [id number] review of systems. PHYSICAL EXAMINATION: General appearance in no acute distress. HEENT: Normocephalic and nontraumatic. Eyes, nose, ears, and throat are unremarkable. Neck is supple. No lymphadenopathy. No bruits are heard over the carotid artery. No Crepitus. Cardiovascular: S1, S2, regular rate and rhythm. Pulmonary: Clear to auscultation bilaterally. Abdomen: Bowel sounds are positive. Abdomen is soft, nontender, and nondistended. Extremities: No rash, lesions, or edema. No restriction of range of motion NEUROLOGICAL EXAMINATION: Alert. Oriented to time, place and person. PERRL. EOMI. CN: no focal findings. Muscle tone: within normal. Muscle strength: 5 UE. Not move LE, but able to positioning herself and changing positions. DTR: 2+ all over. Plantar reflex: Flexor response bilaterally Gait: Able to stand on 01/27. Sensory exam: She stated decreased to light touch, pain, and vibration sense in LE. No cerebellar signs elicited. F-T-N test fine Objective Objective Vital Signs Date Time Temp Pulse Resp B/P (MAP) Pulse Ox O2 Delivery O2 Flow Rate FiO2 01/28/17 18:37 20 Room Air 01/28/17 15:00 101.3 102 104/66 (79) 95 101.3 01/27/17 11:00 2.0 Intake and Output 01/29/17 07:00 Intake Total 720 ml Output Total 820 ml Balance -100 ml Intake Oral 720 ml Output Urine Total 800 ml Emesis 20 ml Vitals Signs Vitals VS - Last 72 Hours, by Label Date Time Temp Pulse Resp B/P (MAP) Pulse Ox O2 Delivery O2 Flow Rate FiO2 01/28/17 18:37 20 Room Air 01/28/17 15:00 101.3 102 18 104/66 (79) 95 101.3 01/28/17 13:15 101.3 127 20 121/69 (86) 100 Room Air 101.3 01/28/17 11:00 98.8 111 18 113/65 (81) 96 Room Air 98.8 01/28/17 08:00 Room Air 01/28/17 06:08 99.4 151 24 115/74 (88) 99 99.4 01/28/17 01:31 101.1 131 20 114/56 (75) Room Air 101.1 01/27/17 22:15 102.0 109 20 119/58 (78) 98 Room Air 102.0 01/27/17 20:20 98.1 129 24 125/83 (97) 100 Room Air 98.1 01/27/17 20:20 98.1 127 24 125/83 98.1 01/27/17 20:00 Room Air 01/27/17 19:32 99.1 93 20 120/53 99.1 01/27/17 19:30 99.1 93 20 120/53 (75) 99 Room Air 99.1 01/27/17 18:32 99.1 99 18 113/63 99.1 01/27/17 18:16 100.1 114 18 111/63 100.1 01/27/17 15:19 102.9 111 18 119/67 (84) 100 Room Air 102.9 01/27/17 11:00 97.7 94 18 115/72 (86) 95 Nasal Cannula 2.0 97.7 01/27/17 08:00 Room Air 2.0 01/27/17 07:00 100.0 105 18 108/67 (81) 98 Nasal Cannula 2.0 100.0 Laboratory Laboratory Laboratory Tests Test 01/27/17 20:30 01/27/17 20:45 01/28/17 04:35 01/28/17 17:55 Glucose (Fingerstick) 109 mg/dL (70-99) Creatine Kinase 59 U/L (26-192) Creatine Kinase MB (Mass) < 0.5 ng/mL (0.0-3.6) Creatine Kinase MB Relative Index 0.8 % (0-4) Troponin I Quantitative < 0.017 ng/mL (0.000-0.055) White Blood Count 11.9 x10^3/uL (4.0-11.0) Red Blood Count 4.02 x10^6/uL (3.50-5.40) Hemoglobin 7.8 g/dL (12.0-15.5) Hematocrit 25.4 % (36.0-47.0) Mean Corpuscular Volume 63 fL (79-100) Mean Corpuscular Hemoglobin 19 pg (25-35) Mean Corpuscular Hemoglobin Concent 31 g/dL (31-37) Red Cell Distribution Width 20.7 % (11.5-14.5) Platelet Count 206 x10^3/uL (140-400) Neutrophils (%) (Auto) 91 % (31-73) Lymphocytes (%) (Auto) 3 % (24-48) Monocytes (%) (Auto) 5 % (0-9) Eosinophils (%) (Auto) 1 % (0-3) Basophils (%) (Auto) 0 % (0-3) Neutrophils # (Auto) 10.9 x10^3uL (1.8-7.7) Lymphocytes # (Auto) 0.3 x10^3/uL (1.0-4.8) Monocytes # (Auto) 0.6 x10^3/uL (0.0-1.1) Eosinophils # (Auto) 0.1 x10^3/uL (0.0-0.7) Basophils # (Auto) 0.1 x10^3/uL (0.0-0.2) Segmented Neutrophils % 78 % (35-66) Band Neutrophils % 17 % (0-9) Lymphocytes % 1 % (24-48) Monocytes % 4 % (0-10) Platelet Estimate Adequate (ADEQUATE) Hypochromasia Present Poikilocytosis Present Anisocytosis Mod Microcytosis Marked Tear Drop Cells Present Ovalocytes Present Schistocytes Occ Sodium Level 137 mmol/L (136-145) Potassium Level 3.3 mmol/L (3.5-5.1) Chloride Level 104 mmol/L (98-107) Carbon Dioxide Level 21 mmol/L (21-32) Anion Gap 12 (6-14) Blood Urea Nitrogen 8 mg/dL (7-20) Creatinine 0.7 mg/dL (0.6-1.0) Estimated GFR (Cockcroft-Gault) 118.9 Glucose Level 113 mg/dL (70-99) Calcium Level 8.6 mg/dL (8.5-10.1) Magnesium Level 1.9 mg/dL (1.8-2.4) 1.8 mg/dL (1.8-2.4) Microbiology 01/28/17 Blood Culture - Final, Complete 01/27/17 Urine Culture - Preliminary, Resulted 01/27/17 Urine Culture Result 1 (LATISHA) - Preliminary, Resulted Medication Medications Current Medications Acetaminophen (Tylenol) 650 mg PRN Q6HRS PRN PO MILD PAIN / TEMP Last administered on 01/28/17 15:56; Start 01/28/17 at 02:15 Cefepime HCl 1 gm/ Sodium Chloride 50 ml @ 100 mls/hr Q8HRS IV Last administered on 01/28/17 17:41; Start 01/28/17 at 15:00 Enoxaparin Sodium (Lovenox 40mg Syringe) 40 mg Q24H SQ ; Start 01/28/17 at 18: 00 Gadobutrol (Gadavist) 7.5 mmol 1X ONCE IV Last administered on 01/28/17 10: 18; Start 01/28/17 at 10:15; Stop 01/28/17 at 10:16; Status DC Multi-Ingredient Mouthwash/Gargle (Gi Cocktail Single Dose) 15 ml 1X ONCE SWSW Last administered on 01/28/17 13:53; Start 01/28/17 at 13:45; Stop at 13:46; Status DC Oxycodone HCl (Roxicodone) 5 mg PRN Q6HRS PRN PO PAIN Last administered on 18:37; Start 01/28/17 at 17:45 Pantoprazole Sodium (Protonix) 40 mg DAILYAC PO Last administered on 13:52; Start 01/28/17 at 14:00 Potassium Chloride (Klor-Con) 40 meq 1X ONCE PO Last administered on 17:41; Start 01/28/17 at 17:30; Stop 01/28/17 at 17:31; Status DC Vancomycin HCl 1 each 1X ONCE MC ; Start 01/29/17 at 17:30; Stop 01/29/17 at 17:31 Vancomycin HCl (Vanco Per Pharmacy) 1 each PRN DAILY PRN MC SEE COMMENTS Last administered on 01/28/17 17:55; Start 01/28/17 at 14:45 Vancomycin HCl 1.75 gm/Sodium Chloride 500 ml @ 250 mls/hr 1X ONCE IV Last administered on 01/28/17 18:20; Start 01/28/17 at 14:45; Stop 01/28/17 at 16 :44; Status DC Vancomycin HCl 1 gm/Sodium Chloride 250 ml @ 250 mls/hr Q12H IV ; Start at 14:30; Status UNV Vancomycin HCl 1 gm/Sodium Chloride 250 ml @ 250 mls/hr Q8H IV ; Start at 02:00 Comment Review of Relevant I have reviewed the following items ralph (where applicable) has been applied. PILI BUTLER MD Jan 28, 2017 19:15
[2017-01-28] MEDS ORDERED: IV NORMAL SALINE 1000ML BAG 1,000 ML IV ONE (22:00)
--- NOTE | 2017-01-28 22:07 | EKG ---
[facility] [address] [place] [address] Test Date: 2017-01-28 Test Time: 22:04:39 Pat Name: MYA CAMARILLO Department: Room: 578 1 Gender: F Vaccine Customer Representative: LEXY : 1985 Requested By: ALEXUS EDMONDS Order Number: [id number] Reading MD: Jane Caruso Measurements Intervals [place] Rate: 142 P: -90 FL: 80 QRS: -65 QRSD: 78 T: 43 QT: 332 QTc: 511 Interpretive Statements SINUS TACHYCARDIA LEAD V1 MISSING OTHERWISE NORMAL EKG Electronically Signed On 01-31-2017 10:27:17 CDT by Jane Caruso
[2017-01-28] MEDS: IV NORMAL SALINE 1000ML BAG 1,000 ML IV SCH (23:09)
[2017-01-29] VITALS (9 sets, daily range): BP systolic 93–124; BP diastolic 46–71
[2017-01-29] MEDS: VANCOMYCIN 1 GM in IV NORMAL SALINE 250ML 250 ML IV SCH ×3 (01:34→18:19)
[2017-01-29 04:32] LABS: BASO % 0 % (0-3); EOS % 1 % (0-3); HEMATOCRIT 22.8 % (36.0-47.0); LYMPH # 0.9 x10^3/uL (1.0-4.8); LYMPH % 6 % (24-48); MEAN CORPUSCULAR HEMOGLOBIN 19 pg (25-35); MEAN CORPUSCULAR HGB CONC 30 g/dL (31-37); MEAN CORPUSCULAR VOLUME 63 fL (79-100); MONO % 9 % (0-9); NEUT % 85 % (31-73); PLATELET COUNT 184 x10^3/uL (140-400); RED BLOOD COUNT 3.61 x10^6/uL (3.50-5.40); RED CELL DISTRIBUTION WIDTH 21.1 % (11.5-14.5); WHITE BLOOD COUNT 16.1 x10^3/uL (4.0-11.0)
[2017-01-29 04:49] LABS: HEMOGLOBIN 6.8 g/dL (12.0-15.5)
[2017-01-29 04:50] LABS: ALBUMIN 2.2 g/dL (3.4-5.0); ALBUMIN/GLOBULIN RATIO 0.5 (1.0-1.7); CALCIUM 7.6 mg/dL (8.5-10.1); CREATININE 0.9 mg/dL (0.6-1.0); POTASSIUM 3.7 mmol/L (3.5-5.1); TOTAL BILIRUBIN 0.4 mg/dL (0.2-1.0); TOTAL PROTEIN 6.4 g/dL (6.4-8.2)
[2017-01-29] MEDS: LORazepam 0.5 MG TABLET PO SCH ×4 (05:46→18:18)
[2017-01-29] MEDS: CEFEPIME HCL 1 GM in IV NORMAL SALINE 50ML 50 ML IV SCH ×2 (05:46→14:28)
[2017-01-29] MEDS: oxyCODONE IR 5 MG TABLET PO PRN ×2 (06:06→14:27)
[2017-01-29] MEDS: IV NORMAL SALINE 1000ML BAG 1,000 ML IV SCH ×2 (08:00→15:51)
[2017-01-29] MEDS: CITALOPRAM 20 MG TABLET. PO SCH (08:11)
[2017-01-29] MEDS: IBUPROFEN 400 MG TABLET. PO PRN (08:11)
[2017-01-29] MEDS: PANTOPRAZOLE 40 MG TABLET.DR. PO SCH (08:11)
--- NOTE | 2017-01-29 09:14 | PDOC ---
PROGRESS NOTES Subjective Subjective HPI - Iron deficiency anemia due to chronic blood loss. Etiology is thought to be heavy menstrual cycles. ROS - has menorrhagia Objective Objective Vital Signs Date Time Temp Pulse Resp B/P (MAP) Pulse Ox O2 Delivery O2 Flow Rate FiO2 01/29/17 08:06 100.1 127 20 113/66 100.1 01/29/17 07:30 Room Air 2.0 01/29/17 07:30 97 Physical Exam Heart: Normal S1, Normal S2 General: Alert, Oriented X3 Lungs: Clear to auscultation Neuro: Normal speech Psych/Mental Status: Mental status NL Assessment Assessment Problems Medical Problems: (1) Chest pain Status: Acute (2) Weakness Status: Acute IMPRESSION AND PLAN: 1. Iron deficiency anemia due to chronic blood loss. Etiology is thought to be heavy menstrual cycles. I have advised Gynecology consultation. The patient is very symptomatic and she wants to proceed with blood transfusion today. I have recommended IV iron infusion. I will order Venofer 500 mg IV x 1. I have advised her to follow up with me in about 2-3 weeks to reevaluate her hemoglobin and proceed with more iron infusions as needed. I discussed in detail with the patient and her mother and all her questions were answered. s/p 1 PRBC and venofer 01/27/17 Hb 7.8 on 01/28/17. Hb worse at 6.8 on 01/29/17. Transfusion ongoing. 2. Leukocytosis, mild. WBC is 11.2. She also has fever. There is no evidence of bands. I will continue to monitor. 3. Fever. Management per her primary physician. 4. B12 is 343 on 01/27/17 - start B12 1000 mcg PO daily. 5. Menorrhagia - pt would like to see Delineator. Consult Dr Daniels. Comment Review of Relevant I have reviewed the following items ralph (where applicable) has been applied. Labs Laboratory Tests Test 01/27/17 10:24 01/27/17 12:45 01/27/17 14:55 01/27/17 16:00 Urine Opiates Screen Pos (NEG) Urine Methadone Screen Neg (NEG) Urine Barbiturates Pos (NEG) Urine Phencyclidine Screen Neg (NEG) Urine Amphetamine/Methamphetamine Neg (NEG) Urine Benzodiazepines Screen Neg (NEG) Urine Cocaine Screen Neg (NEG) Urine Cannabinoids Screen Pos (NEG) Urine Ethyl Alcohol Neg (NEG) Creatine Kinase 53 U/L (26-192) Vitamin B12 Level 343 pg/mL (247-911) Serum Folate 12.86 ng/ml (3.2-20.0) Iron Level 6 ug/dL (50-170) Total Iron Binding Capacity 397 ug/dL (250-450) Iron Saturation 2 % (15-34) Ferritin 15 ng/mL (8-252) Reticulocyte Count (auto) 1.3 % (0.5-2.5) Prothrombin Time 15.9 SEC (11.7-14.0) Prothromb Time International Ratio 1.4 (0.8-1.1) Test 01/27/17 20:30 01/27/17 20:45 01/28/17 04:35 01/28/17 17:55 Glucose (Fingerstick) 109 mg/dL (70-99) Creatine Kinase 59 U/L (26-192) Creatine Kinase MB (Mass) < 0.5 ng/mL (0.0-3.6) Creatine Kinase MB Relative Index 0.8 % (0-4) Troponin I Quantitative < 0.017 ng/mL (0.000-0.055) White Blood Count 11.9 x10^3/uL (4.0-11.0) Red Blood Count 4.02 x10^6/uL (3.50-5.40) Hemoglobin 7.8 g/dL (12.0-15.5) Hematocrit 25.4 % (36.0-47.0) Mean Corpuscular Volume 63 fL (79-100) Mean Corpuscular Hemoglobin 19 pg (25-35) Mean Corpuscular Hemoglobin Concent 31 g/dL (31-37) Red Cell Distribution Width 20.7 % (11.5-14.5) Platelet Count 206 x10^3/uL (140-400) Neutrophils (%) (Auto) 91 % (31-73) Lymphocytes (%) (Auto) 3 % (24-48) Monocytes (%) (Auto) 5 % (0-9) Eosinophils (%) (Auto) 1 % (0-3) Basophils (%) (Auto) 0 % (0-3) Neutrophils # (Auto) 10.9 x10^3uL (1.8-7.7) Lymphocytes # (Auto) 0.3 x10^3/uL (1.0-4.8) Monocytes # (Auto) 0.6 x10^3/uL (0.0-1.1) Eosinophils # (Auto) 0.1 x10^3/uL (0.0-0.7) Basophils # (Auto) 0.1 x10^3/uL (0.0-0.2) Segmented Neutrophils % 78 % (35-66) Band Neutrophils % 17 % (0-9) Lymphocytes % 1 % (24-48) Monocytes % 4 % (0-10) Platelet Estimate Adequate (ADEQUATE) Hypochromasia Present Poikilocytosis Present Anisocytosis Mod Microcytosis Marked Tear Drop Cells Present Ovalocytes Present Schistocytes Occ Sodium Level 137 mmol/L (136-145) Potassium Level 3.3 mmol/L (3.5-5.1) Chloride Level 104 mmol/L (98-107) Carbon Dioxide Level 21 mmol/L (21-32) Anion Gap 12 (6-14) Blood Urea Nitrogen 8 mg/dL (7-20) Creatinine 0.7 mg/dL (0.6-1.0) Estimated GFR (Cockcroft-Gault) 118.9 Glucose Level 113 mg/dL (70-99) Calcium Level 8.6 mg/dL (8.5-10.1) Magnesium Level 1.9 mg/dL (1.8-2.4) 1.8 mg/dL (1.8-2.4) Test 01/29/17 00:45 01/29/17 03:30 Lactic Acid Level 0.9 mmol/L (0.4-2.0) White Blood Count 16.1 x10^3/uL (4.0-11.0) Red Blood Count 3.61 x10^6/uL (3.50-5.40) Hemoglobin 6.8 g/dL (12.0-15.5) Hematocrit 22.8 % (36.0-47.0) Mean Corpuscular Volume 63 fL (79-100) Mean Corpuscular Hemoglobin 19 pg (25-35) Mean Corpuscular Hemoglobin Concent 30 g/dL (31-37) Red Cell Distribution Width 21.1 % (11.5-14.5) Platelet Count 184 x10^3/uL (140-400) Neutrophils (%) (Auto) 85 % (31-73) Lymphocytes (%) (Auto) 6 % (24-48) Monocytes (%) (Auto) 9 % (0-9) Eosinophils (%) (Auto) 1 % (0-3) Basophils (%) (Auto) 0 % (0-3) Neutrophils # (Auto) 13.7 x10^3uL (1.8-7.7) Lymphocytes # (Auto) 0.9 x10^3/uL (1.0-4.8) Monocytes # (Auto) 1.4 x10^3/uL (0.0-1.1) Eosinophils # (Auto) 0.1 x10^3/uL (0.0-0.7) Basophils # (Auto) 0.0 x10^3/uL (0.0-0.2) Sodium Level 137 mmol/L (136-145) Potassium Level 3.7 mmol/L (3.5-5.1) Chloride Level 107 mmol/L (98-107) Carbon Dioxide Level 23 mmol/L (21-32) Anion Gap 7 (6-14) Blood Urea Nitrogen 7 mg/dL (7-20) Creatinine 0.9 mg/dL (0.6-1.0) Estimated GFR (Cockcroft-Gault) 89.0 BUN/Creatinine Ratio 8 (6-20) Glucose Level 100 mg/dL (70-99) Calcium Level 7.6 mg/dL (8.5-10.1) Total Bilirubin 0.4 mg/dL (0.2-1.0) Aspartate Amino Transf (AST/SGOT) 27 U/L (15-37) Alanine Aminotransferase (ALT/SGPT) 31 U/L (14-59) Alkaline Phosphatase 57 U/L (46-116) Total Protein 6.4 g/dL (6.4-8.2) Albumin 2.2 g/dL (3.4-5.0) Albumin/Globulin Ratio 0.5 (1.0-1.7) Laboratory Tests Test 01/28/17 17:55 01/29/17 00:45 01/29/17 03:30 Magnesium Level 1.8 mg/dL (1.8-2.4) Lactic Acid Level 0.9 mmol/L (0.4-2.0) White Blood Count 16.1 x10^3/uL (4.0-11.0) Red Blood Count 3.61 x10^6/uL (3.50-5.40) Hemoglobin 6.8 g/dL (12.0-15.5) Hematocrit 22.8 % (36.0-47.0) Mean Corpuscular Volume 63 fL (79-100) Mean Corpuscular Hemoglobin 19 pg (25-35) Mean Corpuscular Hemoglobin Concent 30 g/dL (31-37) Red Cell Distribution Width 21.1 % (11.5-14.5) Platelet Count 184 x10^3/uL (140-400) Neutrophils (%) (Auto) 85 % (31-73) Lymphocytes (%) (Auto) 6 % (24-48) Monocytes (%) (Auto) 9 % (0-9) Eosinophils (%) (Auto) 1 % (0-3) Basophils (%) (Auto) 0 % (0-3) Neutrophils # (Auto) 13.7 x10^3uL (1.8-7.7) Lymphocytes # (Auto) 0.9 x10^3/uL (1.0-4.8) Monocytes # (Auto) 1.4 x10^3/uL (0.0-1.1) Eosinophils # (Auto) 0.1 x10^3/uL (0.0-0.7) Basophils # (Auto) 0.0 x10^3/uL (0.0-0.2) Sodium Level 137 mmol/L (136-145) Potassium Level 3.7 mmol/L (3.5-5.1) Chloride Level 107 mmol/L (98-107) Carbon Dioxide Level 23 mmol/L (21-32) Anion Gap 7 (6-14) Blood Urea Nitrogen 7 mg/dL (7-20) Creatinine 0.9 mg/dL (0.6-1.0) Estimated GFR (Cockcroft-Gault) 89.0 BUN/Creatinine Ratio 8 (6-20) Glucose Level 100 mg/dL (70-99) Calcium Level 7.6 mg/dL (8.5-10.1) Total Bilirubin 0.4 mg/dL (0.2-1.0) Aspartate Amino Transf (AST/SGOT) 27 U/L (15-37) Alanine Aminotransferase (ALT/SGPT) 31 U/L (14-59) Alkaline Phosphatase 57 U/L (46-116) Total Protein 6.4 g/dL (6.4-8.2) Albumin 2.2 g/dL (3.4-5.0) Albumin/Globulin Ratio 0.5 (1.0-1.7) Microbiology 01/28/17 Blood Culture - Final, Complete 01/27/17 Urine Culture - Preliminary, Resulted 01/27/17 Urine Culture Result 1 (LATISHA) - Preliminary, Resulted Medications Current Medications Lorazepam (Ativan) 1 mg 1X ONCE PO Last administered on 01/25/17 20:50; Start 01/25/17 at 20:45; Stop 01/25/17 at 20:48; Status DC Lorazepam (Ativan) 1 mg STK-MED ONCE .ROUTE ; Start 01/25/17 at 20:48; Stop 01/25/17 at 20:49; Status DC Hydromorphone HCl (Dilaudid) 0.5 mg 1X ONCE IV Last administered on 01/25/17 21:31; Start 01/25/17 at 21:30; Stop 01/25/17 at 21:31; Status DC Iohexol (Omnipaque 300 Mg/ml) 75 ml 1X ONCE IV Last administered on 01/25/17 21:46; Start 01/25/17 at 21:45; Stop 01/25/17 at 21:46; Status DC Info (Do NOT chart on this entry -- for MONITORING) 1 each PRN DAILY PRN MC SEE COMMENTS; Start 01/25/17 at 21:45; Stop 01/27/17 at 21:44; Status DC Ondansetron HCl (Zofran) 4 mg PRN Q8HRS PRN IV NAUSEA/VOMITING Last administered on 01/26/17 02:23; Start 01/25/17 at 23:45; Stop 01/26/17 at 12:46 ; Status DC Morphine Sulfate 2 mg PRN Q2HR PRN IV PAIN Last administered on 01/26/17 07:52 ; Start 01/25/17 at 23:45; Stop 01/26/17 at 09:38; Status DC Diphenhydramine HCl (Benadryl) 25 mg PRN Q6HRS PRN IVP ITCHING Last administered on 01/26/17 03:00; Start 01/26/17 at 02:45; Stop 01/26/17 at 09:38 ; Status DC Hydromorphone HCl (Dilaudid) 1 mg PRN Q4HRS PRN IV PAIN Last administered on 05:07; Start 01/26/17 at 02:45; Stop 01/26/17 at 09:38; Status DC Sodium Chloride 1,000 ml @ 100 mls/hr 1X ONCE IV Last administered on 10:15; Start 01/26/17 at 09:45; Stop 01/26/17 at 19:44; Status DC Potassium Chloride 100 ml @ 100 mls/hr Q1H IV Last administered on 01/26/17 13:00; Start 01/26/17 at 10:00; Stop 01/26/17 at 13:59; Status DC Ibuprofen (Motrin) 400 mg PRN Q6HRS PRN PO INFLAMMATION Last administered on 08:11; Start 01/26/17 at 09:45 Diphenhydramine HCl (Benadryl) 25 mg PRN Q6HRS PRN PO ITCHING Last administered on 01/27/17 22:44; Start 01/26/17 at 09:45 Citalopram Hydrobromide (CeleXA) 20 mg DAILY PO Last administered on 08:11; Start 01/26/17 at 13:00 Lorazepam (Ativan) 0.5 mg 1X ONCE IV Last administered on 01/26/17 15:03; Start 01/26/17 at 15:00; Stop 01/26/17 at 15:01; Status DC Lorazepam (Ativan) 0.5 mg PRN Q6HRS PRN PO ANXIETY / AGITATION Last administered on 01/27/17 09:33; Start 01/26/17 at 16:30; Stop 01/27/17 at 12:46 ; Status DC Lorazepam (Ativan) 0.5 mg PRN Q6HRS PRN IV ANXIETY / AGITATION Last administered on 01/27/17 20:52; Start 01/26/17 at 16:30 Acetaminophen/ Aspirin/Caffeine (Excedrin Migraine) 1 tab PRN Q6HRS PRN PO MIGRAINE HEADACHE Last administered on 01/28/17 11:26; Start 01/27/17 at 06:30 Lorazepam (Ativan) 0.5 mg Q6HRS PO Last administered on 01/28/17 23:58; Start 01/27/17 at 13:00 Potassium Chloride (Klor-Con) 40 meq 1X ONCE PO Last administered on 15:42; Start 01/27/17 at 15:00; Stop 01/27/17 at 15:01; Status DC Ondansetron HCl (Zofran Odt) 4 mg PRN Q6HRS PRN PO NAUSEA/VOMITING Last administered on 01/28/17 13:19; Start 01/27/17 at 15:00 Ondansetron HCl (Zofran Odt) 8 mg PRN Q6HRS PRN PO NAUSEA/VOMITING Last administered on 01/27/17 23:05; Start 01/27/17 at 15:00 Iron Sucrose 500 mg/Sodium Chloride 275 ml @ 78.571 mls/ hr 1X ONCE IV Last administered on 01/27/17 20:53; Start 01/27/17 at 18:00; Stop 01/27/17 at 21:29 ; Status DC Acetaminophen (Tylenol) 650 mg PRN Q6HRS PRN PO MILD PAIN / TEMP Last administered on 01/28/17 21:32; Start 01/28/17 at 02:15 Gadobutrol (Gadavist) 7.5 mmol 1X ONCE IV Last administered on 01/28/17 10: 18; Start 01/28/17 at 10:15; Stop 01/28/17 at 10:16; Status DC Multi-Ingredient Mouthwash/Gargle (Gi Cocktail Single Dose) 15 ml 1X ONCE SWSW Last administered on 01/28/17 13:53; Start 01/28/17 at 13:45; Stop at 13:46; Status DC Pantoprazole Sodium (Protonix) 40 mg DAILYAC PO Last administered on 08:11; Start 01/28/17 at 14:00 Cefepime HCl 1 gm/ Sodium Chloride 50 ml @ 100 mls/hr Q8HRS IV Last administered on 01/29/17 05:46; Start 01/28/17 at 15:00 Vancomycin HCl 1 gm/Sodium Chloride 250 ml @ 250 mls/hr Q12H IV ; Start at 14:30; Status UNV Vancomycin HCl 1.75 gm/Sodium Chloride 500 ml @ 250 mls/hr 1X ONCE IV Last administered on 01/28/17 18:20; Start 01/28/17 at 14:45; Stop 01/28/17 at 16 :44; Status DC Vancomycin HCl (Vanco Per Pharmacy) 1 each PRN DAILY PRN MC SEE COMMENTS Last administered on 01/28/17 17:55; Start 01/28/17 at 14:45 Potassium Chloride (Klor-Con) 40 meq 1X ONCE PO Last administered on 17:41; Start 01/28/17 at 17:30; Stop 01/28/17 at 17:31; Status DC Enoxaparin Sodium (Lovenox 40mg Syringe) 40 mg Q24H SQ ; Start 01/28/17 at 18: 00 Oxycodone HCl (Roxicodone) 5 mg PRN Q6HRS PRN PO PAIN Last administered on 06:06; Start 01/28/17 at 17:45 Vancomycin HCl 1 gm/Sodium Chloride 250 ml @ 250 mls/hr Q8H IV Last administered on 01/29/17 01:34; Start 01/29/17 at 02:00 Vancomycin HCl 1 each 1X ONCE MC ; Start 01/29/17 at 17:30; Stop 01/29/17 at 17:31 Sodium Chloride 1,000 ml @ 100 mls/hr Q10H IV Last administered on 01/28/17 23:09; Start 01/28/17 at 22:00 Sodium Chloride 1,000 ml @ 1,000 mls/hr 1X ONCE IV Last administered on 01/28 22:05; Start 01/28/17 at 22:00; Stop 01/28/17 at 22:59; Status DC Active Scripts Active Reported Iron (Ferrous Sulfate) 325 Mg Tablet 325 Mg PO QID Proair Hfa Inhaler (Albuterol Sulfate) 8.5 Gm Hfa.aer.ad 1 Puff INH PRN Q6HRS PRN Vitals/I & O Vital Sign - Last 24 Hours 10/1001/28/17 01/28/17 01/28/17 11:00 13:15 15:00 18:37 Temp 98.8 101.3 101.3 98.8 101.3 101.3 Pulse 111 127 102 Resp 18 20 18 20 B/P (MAP) 113/65 (81) 121/69 (86) 104/66 (79) Pulse Ox 96 100 95 O2 Delivery Room Air Room Air Room Air 01/28/17 01/28/17 01/28/17 01/28/17 19:00 21:35 23:00 23:36 Temp 100.9 103.1 101.4 100.9 103.1 101.4 Pulse 117 163 130 140 Resp 18 22 B/P (MAP) 117/63 (81) 119/76 (90) Pulse Ox 98 99 O2 Delivery Room Air 01/29/17 01/29/17 01/29/17 01/29/17 00:07 00:15 00:54 03:00 Temp 100.0 100.0 Pulse 126 119 114 115 Resp 18 B/P (MAP) 108/66 (80) Pulse Ox 99 O2 Delivery Room Air Room Air 01/29/17 01/29/17 01/29/17 01/29/17 04:46 06:06 07:06 07:30 Temp 101.0 101.0 Pulse 112 144 Resp 18 20 20 B/P (MAP) 110/67 (81) Pulse Ox 97 O2 Delivery Room Air Room Air Room Air 01/29/17 01/29/17 01/29/17 07:30 07:51 08:06 Temp 101.0 100.1 101.0 100.1 Pulse 144 127 Resp 20 20 B/P (MAP) 110/67 113/66 O2 Delivery Room Air O2 Flow Rate 2.0 OCTAVIO HORTON MD Jan 29, 2017 09:14
[2017-01-29] MEDS ORDERED: CYANOCOBALAMIN (VITAMIN B-12) 1,000 MCG TABLET. PO SCH (10:00)
[2017-01-29] MEDS ORDERED: IV NORMAL SALINE 1000ML BAG 1,000 ML IV ONE (12:15)
--- NOTE | 2017-01-29 12:25 | PDOC ---
PROGRESS NOTES Chief Complaint Chief Complaint Chest pain paraplegia ASSESSMENT AND PLAN: 1. Sepsis: fevers, leukocytosis, tachycardia; BP soft. IVF bolus 2. Bacteremia: GNR in blood <12 hrs after blood draw. on cefepime. await cult and sensitivity. pt had E.coli UTI 2 weeks ago; ER urine contaminated. rpt 3. 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 started on celexa and ativan for now. encouraged to work with OT/PT 4. Anemia: iron studies c/w deficiency suspect 2/2 menorrhagia. receiving 2nd unit for decline in H/H. s/p venofer 500 mg 5. Menorrhagia: currently ongoing. [employer]CH[employer]ICIAN consult requested by H/O 6. Hypokalemia: replete orally 7. Back pain: poss 2/2 UTI vs musculoskeletal;. treat symptomatically, NSAIDs , oxy PRN 8. Multisubstance abuse: probable "selfmedication" for mood d/o. KEISHA claire requested 9. Prophylaxis: lovenox, PPI History of Present Illness History of Present Illness c/o migraine NAVARRO. back pain better. mild pelvic pain, "not cramps" Vitals Vitals Vital Signs Date Time Temp Pulse Resp B/P (MAP) Pulse Ox O2 Delivery O2 Flow Rate FiO2 01/29/17 11:00 99.0 112 18 99/52 (68) 98 Room Air 99.0 01/29/17 07:30 2.0 Physical Exam General: Alert, Oriented X3, Cooperative, No acute distress Heart: Other (tachy) Lungs: Clear Abdomen: Normal bowel sounds, Soft, No tenderness Extremities: No edema Skin: No rashes Labs LABS Laboratory Tests Test 01/28/17 17:55 01/29/17 00:45 01/29/17 03:30 Magnesium Level 1.8 mg/dL (1.8-2.4) Lactic Acid Level 0.9 mmol/L (0.4-2.0) White Blood Count 16.1 x10^3/uL (4.0-11.0) Red Blood Count 3.61 x10^6/uL (3.50-5.40) Hemoglobin 6.8 g/dL (12.0-15.5) Hematocrit 22.8 % (36.0-47.0) Mean Corpuscular Volume 63 fL (79-100) Mean Corpuscular Hemoglobin 19 pg (25-35) Mean Corpuscular Hemoglobin Concent 30 g/dL (31-37) Red Cell Distribution Width 21.1 % (11.5-14.5) Platelet Count 184 x10^3/uL (140-400) Neutrophils (%) (Auto) 85 % (31-73) Lymphocytes (%) (Auto) 6 % (24-48) Monocytes (%) (Auto) 9 % (0-9) Eosinophils (%) (Auto) 1 % (0-3) Basophils (%) (Auto) 0 % (0-3) Neutrophils # (Auto) 13.7 x10^3uL (1.8-7.7) Lymphocytes # (Auto) 0.9 x10^3/uL (1.0-4.8) Monocytes # (Auto) 1.4 x10^3/uL (0.0-1.1) Eosinophils # (Auto) 0.1 x10^3/uL (0.0-0.7) Basophils # (Auto) 0.0 x10^3/uL (0.0-0.2) Sodium Level 137 mmol/L (136-145) Potassium Level 3.7 mmol/L (3.5-5.1) Chloride Level 107 mmol/L (98-107) Carbon Dioxide Level 23 mmol/L (21-32) Anion Gap 7 (6-14) Blood Urea Nitrogen 7 mg/dL (7-20) Creatinine 0.9 mg/dL (0.6-1.0) Estimated GFR (Cockcroft-Gault) 89.0 BUN/Creatinine Ratio 8 (6-20) Glucose Level 100 mg/dL (70-99) Calcium Level 7.6 mg/dL (8.5-10.1) Total Bilirubin 0.4 mg/dL (0.2-1.0) Aspartate Amino Transf (AST/SGOT) 27 U/L (15-37) Alanine Aminotransferase (ALT/SGPT) 31 U/L (14-59) Alkaline Phosphatase 57 U/L (46-116) Total Protein 6.4 g/dL (6.4-8.2) Albumin 2.2 g/dL (3.4-5.0) Albumin/Globulin Ratio 0.5 (1.0-1.7) DANTE BLACKWOOD MD Jan 29, 2017 12:25
--- NOTE | 2017-01-29 16:33 | RAD ---
Indication heavy menstrual bleeding. Transabdominal scans were not obtained. The examination was performed transvaginally. HCG status is uncertain but for the purposes of this dictation will be assumed to be negative. The uterus measures approximately 11 x 5.4 x 6.5 cm. The endometrial thickness of approximately 12 mm is within normal limits. The ovaries appeared unremarkable. There was no significant free fluid in the pelvis. IMPRESSION: Normal study
--- NOTE | 2017-01-29 17:03 | PDOC ---
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 Sepsis. Bacteremia, GNR. Anemia. Panic attack. Cannabinoids positive. Opiate positive. Conversion disorder component. RECOMMENDATIONS/PLAN: Patient again declined LP for CSF exam on 01/29/17. Consulted Hematology for anemia. Treat medical diseases. OT/PT. L-spine MRI w/wo contrast: No acute abnormal findings. PAST MEDICAL HISTORY: 1. She reports that she had a similar spell 5 years ago in [place] when she was anemic. She was totally paralyzed and she was hospitalized for 3-4 days and made improvement, but it took 3 weeks to gain back all of her strength. 2. Asthma. 3. Migraine headache with chronic daily headaches. PAST SURGICAL HISTORY: Bilateral tubal ligation and tubal . ALLERGIES: CIPROFLOXACIN, SULFA AND TRIMETHOPRIM. FAMILY HISTORY: Several family members have iron deficient anemia. SOCIAL HISTORY: She is single. She has 5 children, but only two presently live with her. The 5 children come from at least 3 different fathers. She does not smoke tobacco or drink excessive alcohol. She has relocated from [place] to live with her mother. MEDICATIONS: Refer to [facility] REVIEW OF SYSTEMS: Constitutional: No malnutrition, weight loss, cachexia. Head: No traumatic brain or head injury. Skin: No edema, or rash. Ear: No infection. Eyes: No vision loss, or diplopia. Nose: No bleeding or purulent discharges. Hearing: No hearing decrease. Neck: No injury. Breast: No history of cancer, masses, or discharges. Cardiac: No OH, arrhythmia Pulmonary: No pneumonia. GI: No GI Ulcer, GI bleeding Urinary/genital: UTI. Endocrine: No cousin face, craniofacial dysmorphism, polydactyly. Skeletomuscular: No muscular atrophy, deformity. Neurological: see HP. Psychiatric: drug use/abuse. Otherwise, not [id number] review of systems. PHYSICAL EXAMINATION: General appearance in subacute distress. HEENT: Normocephalic and nontraumatic. Eyes, nose, ears, and throat are unremarkable. Neck is supple. No lymphadenopathy. No bruits are heard over the carotid artery. No Crepitus. Cardiovascular: S1, S2, regular rate and rhythm. Pulmonary: Clear to auscultation bilaterally. Abdomen: Bowel sounds are positive. Abdomen is soft, nontender, and nondistended. Extremities: No rash, lesions, or edema. No restriction of range of motion NEUROLOGICAL EXAMINATION: Alert. Oriented to time, place and person. PERRL. EOMI. CN: no focal findings. Muscle tone: within normal. Muscle strength: 5 UE. Can move LE.. DTR: 2+ all over. Plantar reflex: Flexor response bilaterally Gait: Able to stand on 01/27 per nurse. Sensory exam: withdraw response to stimuli in LE. No cerebellar signs elicited. F-T-N test fine Objective Objective Vital Signs Date Time Temp Pulse Resp B/P (MAP) Pulse Ox O2 Delivery O2 Flow Rate FiO2 01/29/17 15:24 98.1 124 52 124/61 (82) 100 Room Air 98.1 01/29/17 07:30 2.0 Intake and Output 01/30/17 06:59 Intake Total 290 ml Balance 290 ml Blood Product IV Normal Saline Flush 290 ml Vitals Signs Vitals VS - Last 72 Hours, by Label Date Time Temp Pulse Resp B/P (MAP) Pulse Ox O2 Delivery O2 Flow Rate FiO2 01/29/17 15:24 98.1 124 52 124/61 (82) 100 Room Air 98.1 01/29/17 14:27 18 Room Air 01/29/17 11:00 99.0 112 18 99/52 (68) 98 Room Air 99.0 01/29/17 10:06 99.0 112 20 99/52 99.0 01/29/17 09:06 99.5 111 20 93/46 99.5 01/29/17 08:06 100.1 127 20 113/66 100.1 01/29/17 07:51 101.0 144 20 110/67 101.0 01/29/17 07:30 Room Air 2.0 01/29/17 07:30 101.0 144 20 110/67 (81) 97 Room Air 101.0 01/29/17 07:06 20 Room Air 01/29/17 06:06 18 Room Air 01/29/17 04:46 112 01/29/17 03:00 100.0 115 18 108/66 (80) 99 100.0 01/29/17 00:54 114 01/29/17 00:15 119 Room Air 01/29/17 00:07 126 Room Air 01/28/17 23:36 140 01/28/17 23:00 101.4 130 22 119/76 (90) 99 101.4 01/28/17 21:35 103.1 163 Room Air 103.1 01/28/17 19:00 100.9 117 18 117/63 (81) 98 100.9 01/28/17 18:37 20 Room Air 01/28/17 15:00 101.3 102 18 104/66 (79) 95 101.3 01/28/17 13:15 101.3 127 20 121/69 (86) 100 Room Air 101.3 01/28/17 11:00 98.8 111 18 113/65 (81) 96 Room Air 98.8 01/28/17 08:00 Room Air Laboratory Laboratory Laboratory Tests Test 01/28/17 17:55 01/29/17 00:45 01/29/17 03:30 Magnesium Level 1.8 mg/dL (1.8-2.4) Lactic Acid Level 0.9 mmol/L (0.4-2.0) White Blood Count 16.1 x10^3/uL (4.0-11.0) Red Blood Count 3.61 x10^6/uL (3.50-5.40) Hemoglobin 6.8 g/dL (12.0-15.5) Hematocrit 22.8 % (36.0-47.0) Mean Corpuscular Volume 63 fL (79-100) Mean Corpuscular Hemoglobin 19 pg (25-35) Mean Corpuscular Hemoglobin Concent 30 g/dL (31-37) Red Cell Distribution Width 21.1 % (11.5-14.5) Platelet Count 184 x10^3/uL (140-400) Neutrophils (%) (Auto) 85 % (31-73) Lymphocytes (%) (Auto) 6 % (24-48) Monocytes (%) (Auto) 9 % (0-9) Eosinophils (%) (Auto) 1 % (0-3) Basophils (%) (Auto) 0 % (0-3) Neutrophils # (Auto) 13.7 x10^3uL (1.8-7.7) Lymphocytes # (Auto) 0.9 x10^3/uL (1.0-4.8) Monocytes # (Auto) 1.4 x10^3/uL (0.0-1.1) Eosinophils # (Auto) 0.1 x10^3/uL (0.0-0.7) Basophils # (Auto) 0.0 x10^3/uL (0.0-0.2) Sodium Level 137 mmol/L (136-145) Potassium Level 3.7 mmol/L (3.5-5.1) Chloride Level 107 mmol/L (98-107) Carbon Dioxide Level 23 mmol/L (21-32) Anion Gap 7 (6-14) Blood Urea Nitrogen 7 mg/dL (7-20) Creatinine 0.9 mg/dL (0.6-1.0) Estimated GFR (Cockcroft-Gault) 89.0 BUN/Creatinine Ratio 8 (6-20) Glucose Level 100 mg/dL (70-99) Calcium Level 7.6 mg/dL (8.5-10.1) Total Bilirubin 0.4 mg/dL (0.2-1.0) Aspartate Amino Transf (AST/SGOT) 27 U/L (15-37) Alanine Aminotransferase (ALT/SGPT) 31 U/L (14-59) Alkaline Phosphatase 57 U/L (46-116) Total Protein 6.4 g/dL (6.4-8.2) Albumin 2.2 g/dL (3.4-5.0) Albumin/Globulin Ratio 0.5 (1.0-1.7) Microbiology 01/28/17 Blood Culture - Final, Complete 01/27/17 Urine Culture - Final, Complete 01/27/17 Urine Culture Result 1 (LATISHA) - Final, Complete Medication Medications Current Medications Cyanocobalamin (Vitamin B-12) 1,000 mcg DAILY PO Last administered on 10:58; Start 01/29/17 at 10:00 Enoxaparin Sodium (Lovenox 40mg Syringe) 40 mg Q24H SQ ; Start 01/28/17 at 18: 00 Medroxyprogesterone Acetate (Provera) 5 mg BID PO Last administered on 14:27; Start 01/29/17 at 14:00 Oxycodone HCl (Roxicodone) 5 mg PRN Q6HRS PRN PO PAIN Last administered on 14:27; Start 01/28/17 at 17:45 Potassium Chloride (Klor-Con) 40 meq 1X ONCE PO Last administered on 17:41; Start 01/28/17 at 17:30; Stop 01/28/17 at 17:31; Status DC Sodium Chloride 1,000 ml @ 100 mls/hr Q10H IV Last administered on 01/29/17 15:51; Start 01/28/17 at 22:00 Sodium Chloride 1,000 ml @ 1,000 mls/hr 1X ONCE IV Last administered on 01/28 22:05; Start 01/28/17 at 22:00; Stop 01/28/17 at 22:59; Status DC Sodium Chloride 1,000 ml @ 1,000 mls/hr 1X ONCE IV Last administered on 01/29 12:42; Start 01/29/17 at 12:15; Stop 01/29/17 at 13:14; Status DC Vancomycin HCl 1 each 1X ONCE MC ; Start 01/29/17 at 17:30; Stop 01/29/17 at 17:31 Vancomycin HCl 1 gm/Sodium Chloride 250 ml @ 250 mls/hr Q8H IV Last administered on 01/29/17 10:58; Start 01/29/17 at 02:00 Comment Review of Relevant I have reviewed the following items ralph (where applicable) has been applied. PILI BUTLER MD Jan 29, 2017 17:03
[2017-01-29] MEDS: ENOXAPARIN 40 MG/0.4 ML SYRINGE. SQ SCH (18:00)
[2017-01-29] MEDS: VANCOMYCIN PER PHARMACY MC PRN (18:25)
[2017-01-30] MEDS ORDERED: VANCOMYCIN 1.25 GM in IV NORMAL SALINE 250ML 250 ML IV SCH (02:00)
== END 2017-01-29 20:00 | DRG 872 ==
LOC: ER 20:19 → 6 SOUTH 23:51 → ER 01-26 00:27 → 5 SOUTH 01-26 16:22 → OBSVTOIN 01-27 10:13
PROVIDERS: ADMIT Internal Medicine; ATTEND Internal Medicine
PROC: 30233N1 Transfusion of Nonautologous Red Blood Cells into Peripheral Vein, Percutaneous Approach (ICD-10-PCS; principal; 2017-01-27)
DX: A41.9 Sepsis, unspecified organism (principal); G82.20 Paraplegia, unspecified; F44.7 Conversion disorder with mixed symptom presentation; D50.0 Iron deficiency anemia secondary to blood loss (chronic); E87.6 Hypokalemia; F12.90 Cannabis use, unspecified, uncomplicated; N39.0 Urinary tract infection, site not specified; F17.210 Nicotine dependence, cigarettes, uncomplicated; F39 Unspecified mood [affective] disorder; F41.0 Panic disorder [episodic paroxysmal anxiety]; F44.9 Dissociative and conversion disorder, unspecified; G43.909 Migraine, unspecified, not intractable, without status migrainosus; J45.909 Unspecified asthma, uncomplicated; N92.0 Excessive and frequent menstruation with regular cycle; Z79.899 Other long term (current) drug therapy; Z98.51 Tubal ligation status; Z09 Encounter for follow-up examination after completed treatment for conditions other than malignant neoplasm; Z88.1 Allergy status to other antibiotic agents; Z88.2 Allergy status to sulfonamides; Z88.8 Allergy status to other drugs, medicaments and biological substances; Z83.2 Family history of diseases of the blood and blood-forming organs and certain disorders involving the immune mechanism
CPT/HCPCS: 36415; 71010; 71275; 72158; 76856; 80048; 80053; 80076; 80202; 80307; 81025; 82550; 82553; 82607; 82728; 82746; 82962; 83540; 83550; 83605; 83690; 83735; 83880; 84439; 84443; 84484; 85007; 85025; 85045; 85610; 86850; 86900; 86901; 86920; 87040; 87086; 87205; 93005; 93306; 96374; A9585; G0378; G0379; J0692; J1170; J1200; J1756; J2060; J2270; J2405; J3370; J3480; J7030; J7040; J7050; P9016; Q0162; Q0163; Q9967; 97116; 97530; 97535; 99285-25; G0479